=== PATIENT | male | born 1955 | race African-American/Black ===

== ENCOUNTER 2022-11-05 13:33 | Inpatient (IN) | payer OTHER, SELFPAY ==
--- NOTE | ~2022-11-05 | MR_ITS ---
MRI OF THE BRAIN WITHOUT IV CONTRAST INDICATION: Rule out frontotemporal dementia. COMPARISON: None available. TECHNIQUE: Multiplanar multisequence MR imaging of the brain was obtained without IV contrast. FINDINGS: There is no hydrocephalus, extra-axial surface collection, or herniation. There is global cerebral volume loss with a frontoparietal lobar predominance at the high convexity. There is mild chronic microangiopathy. The major flow voids at the skull base are preserved. There is no acute infarct on diffusion-weighted imaging. There is no intracranial hemorrhage on the gradient recalled echo acquisition. The midline structures are normal. The cerebellar tonsils are normally positioned. The cerebellum and brainstem are normal. The craniocervical junction is normal. Osseous marrow signal intensity is homogenous. The visualized soft tissues are unremarkable. MR/MR head/brain wo con IMPRESSION: There is global cerebral volume loss with a frontoparietal lobar predominance at the high convexity. There is mild chronic microangiopathy.
--- NOTE | ~2022-11-05 | XR_ITS ---
Examination: Skull 2 views. Clinical indications: Pre-MRI screening. TECHNIQUE: 2 views. FINDINGS: There is no radiopaque metallic foreign body seen in the orbits or the skull. Visualized paranasal sinuses are clear. There are dental fillings along the premolar teeth bilaterally. XR/XR pre mri screening IMPRESSION: No radiopaque metallic foreign body seen in the orbits.
--- NOTE | ~2022-11-05 | XR_ITS ---
EXAMINATION: XR WRIST, LEFT XR HAND, LEFT CLINICAL INFORMATION: Rule out hardware COMPARISON: None available. TECHNIQUE: PA, lateral, and oblique views of the left wrist and PA, lateral, and oblique views of the left hand FINDINGS: There is osteopenia. There is old trauma to the middle phalanx of the third finger. There are adjacent multiple small radiopaque soft tissue foreign bodies. No acute fracture or dislocation. There is mild arthritis at the first LONG-TERM joint. Carpal bones are otherwise normal. Soft tissues are otherwise normal. XR/XR hand wrist LT IMPRESSION: Old trauma to the middle phalanx of the left third finger and multiple adjacent soft tissue foreign bodies. Mild arthritis first LONG-TERM joint. Osteopenia.
[2022-11-05 14:04] VITALS: BMI 21.4
[2022-11-05 14:06] VITALS: BP 136/71; PULSE 82; RESP 16; TEMP 36.8; O2SAT 97
--- NOTE | 2022-11-05 15:12 | P.HPPS_ITS ---
[facility] Date of Service: 11/05/22 Chief Complaint: Psychosis Sources of Information: patient interviewed, chart reviewed and crisis/core team assessment reviewed [facility] Subjective Notes: Feliciano Warning and Conditional Voluntary Narrative: The patient is a 67-year-old male, , living with his and the relatives, retired, on disability, with no prior formal psychiatric history referred from the emergency room of [facility] for psychotic symptoms. According to the crisis assessment, the patient reported that he was not feeling good that he was feeling a stress out and he called 911 and EMS brought him to the emergency room. According to the collateral information of the crisis, his reported that he had been suffering from dementia for the last 20 years and he had been poorly compliant with treatment. In the last weeks the patient shown bizarre behavior elicited by her resting his neighbors, living food on the porch of his neighbors, talking to himself, and poor short- term memory. He was medically cleared at the emergency room of [facility] and transferring to this facility for psychiatric stabilization. According to the crisis assessment the patient does not have any insight into his mental and behavioral problems. On interview, the patient was very pleasant and cooperative, he stated that he did not know why they brought him here, he wants to figure it out what is going on and he signed a conditional voluntary. He denied auditory or visual hallucinations, denies anxiety or depression. He admitted being a heavy smoker more than a pack of cigarettes per day, sporadic use of cannabis and alcohol but not current use. He denies any medical problems. According to the chart, his neighbors have filed and no her assessment order and the patient does not know why. On the intake interview, the patient was very hard of hearing, his hearing aids were not working very well but he was able to understand most of the questions. He understood feliciano warning. Past Psychiatric History: No prior psychiatric history but apparently in the last 2 years he was diagnosed with dementia. Medical Evaluation Reviewed: Hospitalist Jorge Pending [facility] Narrative: Dementia Hard of hearing Family History: According to the crisis assessment the patient is father had Alzheimer's dementia Social History: The patient is lives with his and relative, he has very good social support, he is currently on disability. He has a stable housing. Substance History: He admitted using sporadic cannabis and alcohol Trauma History: Denies Diagnostics Vital Signs (24Hr): Vital Signs - 24 hr 11/05/22 14:06 Temperature 98.2 F Pulse Rate 82 Respiratory Rate 16 Blood Pressure 136/71 Pulse Oximetry 97 Oxygen Delivery Method Room Air BMI result Body Mass Index 21.4 Meds/Allergies Allergies Allergies Allergy/AdvReac Type Severity Reaction Status Date / Time No Known Allergies Allergy Verified 11/05/22 13:53 Mental Status Exam Mental Status Exam Patient Appearance: Appropriate (On hospital gowns) Patient Orientation: Person and Situation Level of Consciousness: Awake and Appropriate Patient Behavior: Guarded and Passive Mood Description: Calm Affect Description: Constricted Patient Cognition Impaired: Yes Ability to Follow Directions: Good Speech Pattern: Clear Hallucinations: Auditory Delusions: Ideas of Reference Thought Process: Distracted and Slowed Thinking Thought Content: positive for [place], positive for Poverty of Content and positive for Loose Associations Judgement: Poor Assessment & Plan Assessment & Plan (1) Dementia: Status: Acute Code(s): F03.90 - Unspecified dementia, unspecified severity, without behavioral disturbance, psychotic disturbance, mood disturbance, and anxiety (2) Psychotic disorder: Status: Acute Code(s): F29 - Unspecified psychosis not due to a substance or known physiological condition Plan The patient is an elderly male with no prior psychiatric history besides dementia who had been on compliant with medications and in the last weeks he presented with psychotic symptoms elicited by disorganized behavior, responding to internal stimuli and her icing his neighbors to the point that the neighbors put an order of wrist traction against him. The patient does not have any insight into his condition but he is able to stay in the hospital for assessment. Plan 1. Gather collateral information. We are going to try to contact his family and get more information. We are also going to try to contact his primary care physician and get previous records of previous [place] tests. 2. According to the med rec, the patient had been taking Aricept 10 mg p.o. q.h.s. that we will continue. 3. We will continue with a mean the 3 and other medications. 4. We will continue with medical workout. 5. We will start a very low dose of olanzapine 2.5 p.o. q.h.s. to target psychosis Patient educated on: diagnosis and therapeutic strategies Informed Consent: further education needed Reason for continued inpatient stay Substantial Risk for: harm to others, inability to function, rapid decompensation and med/psych decompensation Statement Statement: I have reviewed the history and physical and performed a pertinent examination on my patient. No changes have occurred unless specified. If the History and Physical was not performed prior to admission, the Hospitalist's service will be consulted for completing the admission physical. Time Spent With Patient Time: Total time managing care of this patient today _45___ minutes.
--- NOTE | 2022-11-05 15:55 | PC.ADMIT ---
Addendum entered and electronically signed by Angela Albert RN 11/05/22 18:49: Pt declined Atarax again when visited. shook head and stated, He won't take it. Accepted Flu Vacc prescribed left deltoid. Calmer at present time with split visit from family; and daughter. Original Note: Addendum entered and electronically signed by Angela Albert RN 11/05/22 18:18: Pt attempted to climb over nurses station at 1745. Observed with top of body hanging downward over side of nurses station with head facing down by staff. Pt removed self from area with staff direction. Exit seeking every time staff exited and entered unit for breaks. Atarax 25mg po offered at 1814 for anxiety. Pt reluctant to take despite med education. Took very tip of pill in mouth and stated, I should just take a very little bit since I don't know what it will do to me. Placed pill on table for this speech writer to retrieve. Original Note: This is the 1st admission for this 67 y.o. male to [facility]. Referred by Aleshia Chairez with Dx of Unspecified Neurocognitive Disorder. Arrived on unit at 1445 via stretcher from [facility] ED and placed on 5 min safety checks. Precipitating factors to admission: Presented to [facility] ED via EMS reportedly for unusual behaviors. Per [facility] assessment reported pt has been harassing neighbors by attempting to get into the home and leaving food on the front porch. Neighbors have filed a harassment order against pt and reported pt does not comprehend the reason for order. reported pt has no insight into mental health and has been non-compliant with meds. reported observing pt having full conversations with the bahena. According to pt has been experiencing memory loss x2 years and reported paranoia and delusions have increased over the last couple of months. Pt reports monthly etoh/marijuana use and denies withdrawal symptoms. Reports smoking 1.5-2 packs of cigarettes daily, NRT ordered by Dr Kelly. Denies current medical issues. Meds verified with [facility], admission ordered received from Dr Kelly. Denies SI/HI. Stated, I can hear voices of my neighbors right now. It i nerve wracking when you constantly hear them, especially when you are trying to have a conversation. Stated, Did you hear that? Punch him in the nose? [place] bilaterally, utilizes hearing aids with minimal effect. Confusion noted throughout admission assessment and all following interactions. Looking for a way off of unit to catch a bus to see his mother. Repetitive with this, approaches multiple staff members wt same request to leave. Unable to process feedback given re: being hospitalized. Initially stated he was here for analysis of his eyes and ears. Then stated he was here to visit someone, has done this and needs to get home to his mother that he has left on the porch. Stated he does not live with , but will always have a room in her home. called, updated on condition/confusion. states pt's mother in 2008 and pt does live with her. states they just celebrated anniversary. to visit tonight if time available.
--- NOTE | 2022-11-05 19:07 | P.CONHOSP_ITS ---
<Statement entered by Gabriel Martin MD - 01/04/23 19:16> pt was not seen by me History of Present Illness Data of Consult Service Date: 11/05/22 Primary Care Provider: Unknown Physician HPI Reason for consult: Admission H&P Pt is a 67-year-old male with no known significant PMH who is admitted to [facility] for unusual and aggressive behavior. Patient apparently has been having memory loss for the past 2 years though it has increased lately. reports neighbors have filed a harassment order as patient has been leaving uncooked food on their porch is and threatening to hit them. also reports patient experiencing auditory and visual hallucinations and has witnessed him having full conversations with the bahena. Medical consult for admission H&P. ?Patient alert and oriented to self only during interview and exam, displaying flight of ideas, incomprehensible thought, not answering questions appropriately. Patient is incapable of providing accurate HPI, the patient states he has no acute medical complaints at this time. Review of Systems Review of Systems: Unable to obtain due to patient's mentation [facility] Social History Household Members: Spouse Housing: House Do you presently have visiting nurse or other home services: No Patient Tobacco Use Status: Current everyday Tobacco user Tobacco use type: Cigarette Cigarette Packs Per Day: 1.5 Cigarettes Per Day: 30.0 Years Smoked: 50 Smoked in Last 30 Days: Yes e-Cigarette/Vaping Use: Never Used Patient Interested in Nicotine Replacement: Yes Patient Given Instructions on How to Stop Smoking: No (does not want) Second Hand Smoke Exposure: Yes Use of substances other than those prescribed or required for medical reasons: Yes Substance Use Type: Marijuana Substance Use Frequency: Monthly Last Used Substance Other:: 1 month ago Currently Displaying Signs/Symptoms of Drug Intoxication Withdrawal: No Any prior treatment program specific to substance use: No Have you been hit, kicked, punched, or otherwise hurt by someone within the past year? If so, by whom?: No Do you feel safe in your current relationship?: Yes Is there a partner from a previous relationship who is making you feel unsafe now?: No Are you made to feel afraid or neglected: No Advance Directives: No Advance Directives Information Provided: Yes Do you have thoughts of harming others: None Do you have a plan to hurt others: No Plan Recently lost weight without trying: No Nutrition Risks: No Nutritional Risk Poor oral hygiene: No Sexual orientation: Straight/Heterosexual Meds Allergies Allergy/AdvReac Type Severity Reaction Status Date / Time No Known Allergies Allergy Verified 11/05/22 13:53 Active Medications: Current Medications Acetaminophen (Acetaminophen 325 Mg Tablet) 650 mg PO Q6H PRN PRN Reason: Headache/Pain Mild Scale (1-3) Al Hydroxide/Mg Hydroxide (Magnesium Hydrox/Alum Hydrox 30 Ml Oral.Susp) 30 ml PO Q6H PRN PRN Reason: Heartburn/Nausea Donepezil HCl (Donepezil Hcl 10 Mg Tablet) 10 mg PO BEDTIME BARBARA Hydroxyzine HCl (Hydroxyzine Hcl 25 Mg Tablet) 25 mg PO Q6H PRN PRN Reason: Anxiety Magnesium Hydroxide (Milk Of Magnesia 30 Ml Oral.Susp) 30 ml PO DAILY PRN PRN Reason: Constipation Nicotine (Nicotine 21 Mg Patch.Td24) 21 mg TRANSDERMA DAILY BARBARA Nicotine Polacrilex (Nicotine Polacrilex 2 Mg Gum) 2 mg BUCCAL Q2H PRN PRN Reason: smoking Olanzapine (Olanzapine 2.5 Mg Tablet) 2.5 mg PO BEDTIME BARBARA Trazodone HCl (Trazodone Hcl 50 Mg Tablet) 50 mg PO BEDTIME MRX1 PRN PRN Reason: Insomnia Vitamin D (Cholecalciferol (Vitamin D3) 10 Mcg Tablet) 20 mcg PO DAILY [facility] Home Medications Medication Instructions Recorded Confirmed Last Taken Type celecoxib 200 mg capsule (Celebrex) 200 mg PO DAILY 11/05/22 11/05/22 Unknown History cholecalciferol (vitamin D3) 50 2,000 unit PO DAILY 11/05/22 11/05/22 Unknown History mcg (2,000 unit) capsule (Vitamin D3) donepezil 10 mg tablet 10 mg PO BEDTIME 11/05/22 11/05/22 Unknown History donepezil 5 mg tablet 5 mg PO BEDTIME 11/05/22 11/05/22 Unknown History Physical Exam Vital Signs and Narrative: Vital Signs: Last Vital Signs Temp 98.2 F 11/05/22 14:06 Pulse 82 11/05/22 14:06 Resp 16 11/05/22 14:06 BP 136/71 11/05/22 14:06 Pulse Ox 97 11/05/22 14:06 O2 Del Method Room Air 11/05/22 14:06 BMI result Body Mass Index 21.4 Constitutional: Alert, confused, in no acute distress. Mental Status: Oriented to person only, not to place, time, or situation. Eyes: Pupils are equal, round, and reactive to light. Ear, Nose, and Throat: Oropharynx clear, mucous membranes moist. Ears and nose without deformities. Trachea midline. Respiratory: Clear to auscultation bilaterally. No wheezing, rales, or rhonchi. Cardiovascular: S1, S2 regular. No murmurs, rubs, or gallops. Gastrointestinal: Abdomen soft, non-tender, non-distended. Normal bowel sounds. Neurologic: Cranial nerves II-XII are grossly intact bilaterally. No focal neuro logical deficits. Moves all extremities spontaneously. Skin: No rashes or lesions noted. Musculoskeletal: No cyanosis or clubbing. Extremities: No edema. Psychiatric: Confused, displaying flight of ideas, not answering appropriately. Assessment and Plan (1) Dementia: Status: Acute (2) Medical clearance for psychiatric admission: Status: Acute Plan Pt is a 67-year-old male with no known significant PMH who is admitted to [facility] for unusual and aggressive behavior. Patient apparently has been having memory loss for the past 2 years though it has increased lately. reports neighbors have file in respite order S patient has been leaving uncooked food on their porch is and threatening to hit them. also reports patient experiencing auditory and visual hallucinations and has witnessed him having full conversations with the bahena. Medical consult for admission H&P. Mood disorder Plan as per Psychiatry Dementia Continue donepezil Thank you for allowing us to participate in the care of this patient. Signing off at this time. Please let us know if there are any acute complaints or questions. Time Spent With Patient Time: Total time managing care of this patient today ____ minutes.
[2022-11-05] MEDS: OLANZapine 2.5 MG TABLET PO (20:56)
[2022-11-05] MEDS: Donepezil HCl 10 MG TABLET PO (20:56)
[2022-11-05] MEDS: traZODone HCL 50 MG TABLET PO ×2 (20:56→23:31)
[2022-11-05] MEDS: Nicotine Polacrilex 2 MG GUM BUCCAL (21:00)
[2022-11-05] MEDS: hydrOXYzine HCL 25 MG TABLET PO (23:31)
[2022-11-05] MEDS: Acetaminophen 325 MG TABLET 650 MG PO (23:31)
[2022-11-06 07:00] VITALS: BMI 21.9
[2022-11-06 08:17] VITALS: BP 97/67; PULSE 77; RESP 16; TEMP 36.4; O2SAT 98
[2022-11-06] MEDS: Celecoxib 200 MG CAPSULE PO (08:19)
[2022-11-06] MEDS: Nicotine 21 MG PATCH.TD24 TRANSDERMA (08:19)
[2022-11-06] MEDS: Cholecalciferol (Vitamin D3) 25 MCG TABLET PO (08:22)
[2022-11-06 08:30] LABS: Alanine Aminotransferase 41 U/L (0-40); Albumin Level 4.1 g/dL (3.5-5.0); Alkaline Phosphatase 85 U/L (39-117); Anion Gap 12 (12-20); Aspartate Amino Transferase 32 U/L (5-37); Bilirubin Total 1.2 mg/dL (0.0-1.0); Blood Urea Nitrogen 18 mg/dL (9-16); Calcium 9.3 mg/dL (8.4-10.2); Carbon Dioxide 25 mmol/L (22-29); Chloride 108 mmol/L (96-108); Cholesterol 168 mg/dL (<200); Creatinine Clr Calc Pharmacy 75.3; Estimated Glomerular Filt Rate > 60; Glucose Fasting 104 mg/dL (60-99); HDL Cholesterol 48 mg/dL (>40); LDL Cholesterol Calculated 112 mg/dL (<100); Potassium 3.8 mmol/L (3.3-5.1); Sodium 141 mmol/L (135-145); Total Protein 7.2 g/dL (6.5-8.0); Triglycerides 42 mg/dL (<150)
--- NOTE | 2022-11-06 14:57 | P.PNPSI_ITS ---
Subjective Subjective Date of Service: 11/06/22 Reason For Visit: Psychosis Subjective Notes: Conditional Voluntary Interim History: The nursing staff reported that last night the patient wanted to leave he was agitated and he needed p.r.n. and that helped him to sleep. He has been exit seeking and confused at times. Today the occupational therapist did cognitive Assessment and he scored 4.4 on the Lj test. He was unable to do the Payne test. On interview the patient wants to leave he stated that he is feeling fine and he does not understand why he is here. We are going to contact his and get more collateral information. We are increasing Zyprexa to 5 mg p.o. q.h.s. Mental Status Exam Mental Status Exam Patient Appearance: Well Grooomed Patient Orientation: Person and Situation Level of Consciousness: Awake and Restless Patient Behavior: Appropriate and Passive Mood Description: Calm Affect Description: Constricted Patient Cognition Impaired: Yes Ability to Follow Directions: Good Speech Pattern: Clear Hallucinations: None Delusions: Paranoid Ideation and Ideas of Reference Thought Process: Distracted and Slowed Thinking Thought Content: positive for [place], positive for Poverty of Content and positive for Loose Associations Judgement: Poor Diagnostics Vital Signs (24Hr): Vital Signs - 24 hr 11/06/22 08:17 Temperature 97.6 F Pulse Rate 77 Respiratory Rate 16 Blood Pressure 97/67 Pulse Oximetry 98 Oxygen Delivery Method Room Air BMI result Body Mass Index 21.4 Labs 11/06/22 07:53 Labs: Laboratory Results - last 48 hr 11/06/22 07:53 Sodium 141 Potassium 3.8 Chloride 108 Carbon Dioxide 25 Anion Gap 12 BUN 18 H Creatinine 0.87 Estim Creat Clear Calc 75.3 Estimated GFR > 60 Fasting Glucose 104 H Calcium 9.3 Total Bilirubin 1.2 H AST 32 ALT 41 H Alkaline Phosphatase 85 Total Protein 7.2 Albumin 4.1 Triglycerides 42 Cholesterol 168 LDL Cholesterol, Calc 112 H HDL Cholesterol 48 Medications Medications Current Medications Acetaminophen (Acetaminophen 325 Mg Tablet) 650 mg PO Q6H PRN PRN Reason: Headache/Pain Mild Scale (1-3) Last Admin: 11/05/22 23:31 Dose: 650 mg Al Hydroxide/Mg Hydroxide (Magnesium Hydrox/Alum Hydrox 30 Ml Oral.Susp) 30 ml PO Q6H PRN PRN Reason: Heartburn/Nausea Celecoxib (Celecoxib 200 Mg Capsule) 200 mg PO DAILY [facility] Last Admin: 11/06/22 08:19 Dose: 200 mg Donepezil HCl (Donepezil Hcl 10 Mg Tablet) 10 mg PO BEDTIME BARBARA Last Admin: 11/05/22 20:56 Dose: 10 mg Hydroxyzine HCl (Hydroxyzine Hcl 25 Mg Tablet) 25 mg PO Q6H PRN PRN Reason: Anxiety Last Admin: 11/05/22 23:31 Dose: 25 mg Magnesium Hydroxide (Milk Of Magnesia 30 Ml Oral.Susp) 30 ml PO DAILY PRN PRN Reason: Constipation Nicotine (Nicotine 21 Mg Patch.Td24) 21 mg TRANSDERMA DAILY BARBARA Last Admin: 11/06/22 08:19 Dose: 21 mg Nicotine Polacrilex (Nicotine Polacrilex 2 Mg Gum) 2 mg BUCCAL Q2H PRN PRN Reason: smoking Last Admin: 11/05/22 21:00 Dose: 2 mg Olanzapine (Olanzapine 5 Mg Tablet) 5 mg PO BEDTIME BARBARA Trazodone HCl (Trazodone Hcl 50 Mg Tablet) 50 mg PO BEDTIME MRX1 PRN PRN Reason: Insomnia Last Admin: 11/05/22 23:31 Dose: 50 mg Vitamin D (Cholecalciferol (Vitamin D3) 25 Mcg Tablet) 25 mcg PO DAILY BARBARA Last Admin: 11/06/22 08:22 Dose: 25 mcg Allergies Allergies Allergy/AdvReac Type Severity Reaction Status Date / Time No Known Allergies Allergy Verified 11/05/22 13:53 Assessment & Plan Assessment & Plan (1) Dementia: Status: Acute Code(s): F03.90 - Unspecified dementia, unspecified severity, without behavioral disturbance, psychotic disturbance, mood disturbance, and anxiety (2) Medical clearance for psychiatric admission: Status: Acute Code(s): Z00.8 - Encounter for other general examination Plan Pt is a 67-year-old male with no known significant PMH who is admitted to [facility] for unusual and aggressive behavior. Patient apparently has been having memory loss for the past 2 years though it has increased lately. reports neighbors have file in respite order S patient has been leaving uncooked food on their porch is and threatening to hit them. also reports patient experiencing auditory and visual hallucinations and has witnessed him having full conversations with the bahena. Medical consult for admission H&P. Mood disorder Plan as per Psychiatry Dementia Continue donepezil Plan 1. Gather collateral information. 2. Increase Zyprexa to 5 mg p.o. q.h.s. to target psychosis. 3. We are continue with Aricept 10 mg p.o. q.h.s., we are considering adding Namenda but we need more collateral information. Reason for continued inpatient stay Substantial Risk for: inability to function, rapid decompensation and med/psych decompensation Time Spent With Patient Time: Total time managing care of this patient today __20__ minutes.
[2022-11-06 18:00] VITALS: BP 127/61; PULSE 68; RESP 17; TEMP 36.4; O2SAT 97
[2022-11-06] MEDS: OLANZapine 5 MG TABLET PO (20:31)
[2022-11-06] MEDS: Donepezil HCl 10 MG TABLET PO (20:31)
[2022-11-06] MEDS: traZODone HCL 50 MG TABLET PO (20:31)
[2022-11-06] MEDS: hydrOXYzine HCL 25 MG TABLET PO (20:31)
[2022-11-07 07:30] VITALS: BP 117/64; PULSE 71; RESP 18; TEMP 36.3; O2SAT 98
[2022-11-07] MEDS: Cholecalciferol (Vitamin D3) 25 MCG TABLET PO (08:41)
[2022-11-07] MEDS: Celecoxib 200 MG CAPSULE PO (08:41)
[2022-11-07] MEDS: Nicotine 21 MG PATCH.TD24 TRANSDERMA (08:42)
--- NOTE | 2022-11-07 13:14 | HO.PSYCHPN ---
Subjective Subjective Date of Service: 11/07/22 Reason For Visit: Psychosis Subjective Notes: Conditional Voluntary Interim History: The nursing staff reported the patient is alert oriented to self. He is exit seeking behavior has improved slightly. He slept better last night confused but redirectable. He wants to go home and he does not know why he is here. The social studies teacher talk with his and apparently he had been responding to internal stimuli. He was supposed to go to court yesterday but we wrote a letter stating that he was here. According to his , he has lost more than 90 lb in the last 2 years because he was not eating. Will have a family meeting today at 01:30 to gather more collateral information The occupational therapist reported that the Lj test score 4.2. On interview, the patient is confused but redirectable we are going to increase Namenda up to 5 mg p.o. b.i.d. on top of the Aricept because his cognition is impaired. Since there was psychosis with poor memory, we are ordering an MRI head to R/O fronto-temporal dementia or Lewy Body Mental Status Exam Mental Status Exam Patient Appearance: Well Grooomed and Appropriate Patient Orientation: Person and Situation Level of Consciousness: Awake and Appropriate Patient Behavior: Guarded and Passive Mood Description: Withdrawn Affect Description: Constricted Patient Cognition Impaired: Yes Ability to Follow Directions: Good Speech Pattern: Clear Hallucinations: None Delusions: Paranoid Ideation and Ideas of Reference Thought Process: Illogical, Distracted and Slowed Thinking Thought Content: positive for [place] and positive for Poverty of Content Judgement: Poor Diagnostics Vital Signs (24Hr): Vital Signs - 24 hr 11/06/22 18:00 Temperature 97.6 F Pulse Rate 68 Respiratory Rate 17 Blood Pressure 127/61 Pulse Oximetry 97 Oxygen Delivery Method Room Air BMI result Body Mass Index 21.9 Labs 11/06/22 07:53 Labs: Laboratory Results - last 48 hr 11/06/22 07:53 Sodium 141 Potassium 3.8 Chloride 108 Carbon Dioxide 25 Anion Gap 12 BUN 18 H Creatinine 0.87 Estim Creat Clear Calc 75.3 Estimated GFR > 60 Fasting Glucose 104 H Calcium 9.3 Total Bilirubin 1.2 H AST 32 ALT 41 H Alkaline Phosphatase 85 Total Protein 7.2 Albumin 4.1 Triglycerides 42 Cholesterol 168 LDL Cholesterol, Calc 112 H HDL Cholesterol 48 Medications Medications Current Medications Acetaminophen (Acetaminophen 325 Mg Tablet) 650 mg PO Q6H PRN PRN Reason: Headache/Pain Mild Scale (1-3) Last Admin: 11/05/22 23:31 Dose: 650 mg Al Hydroxide/Mg Hydroxide (Magnesium Hydrox/Alum Hydrox 30 Ml Oral.Susp) 30 ml PO Q6H PRN PRN Reason: Heartburn/Nausea Celecoxib (Celecoxib 200 Mg Capsule) 200 mg PO DAILY [facility] Last Admin: 11/07/22 08:41 Dose: 200 mg Donepezil HCl (Donepezil Hcl 10 Mg Tablet) 10 mg PO BEDTIME [facility] Last Admin: 11/06/22 20:31 Dose: 10 mg Hydroxyzine HCl (Hydroxyzine Hcl 25 Mg Tablet) 25 mg PO Q6H PRN PRN Reason: Anxiety Last Admin: 11/06/22 20:31 Dose: 25 mg Magnesium Hydroxide (Milk Of Magnesia 30 Ml Oral.Susp) 30 ml PO DAILY PRN PRN Reason: Constipation Memantine (Memantine Hcl 5 Mg Tablet) 5 mg PO BID [facility] Nicotine (Nicotine 21 Mg Patch.Td24) 21 mg TRANSDERMA DAILY [facility] Last Admin: 11/07/22 08:42 Dose: 21 mg Nicotine Polacrilex (Nicotine Polacrilex 2 Mg Gum) 2 mg BUCCAL Q2H PRN PRN Reason: smoking Last Admin: 11/05/22 21:00 Dose: 2 mg Olanzapine (Olanzapine 5 Mg Tablet) 5 mg PO BEDTIME [facility] Last Admin: 11/06/22 20:31 Dose: 5 mg Trazodone HCl (Trazodone Hcl 50 Mg Tablet) 50 mg PO BEDTIME MRX1 PRN PRN Reason: Insomnia Last Admin: 11/06/22 20:31 Dose: 50 mg Vitamin D (Cholecalciferol (Vitamin D3) 25 Mcg Tablet) 25 mcg PO DAILY [facility] Last Admin: 11/07/22 08:41 Dose: 25 mcg Allergies Allergies Allergy/AdvReac Type Severity Reaction Status Date / Time No Known Allergies Allergy Verified 11/05/22 13:53 Assessment & Plan Assessment & Plan (1) Dementia: Status: Acute Code(s): F03.90 - Unspecified dementia, unspecified severity, without behavioral disturbance, psychotic disturbance, mood disturbance, and anxiety (2) Medical clearance for psychiatric admission: Status: Acute Code(s): Z00.8 - Encounter for other general examination Plan Pt is a 67-year-old male with no known significant PMH who is admitted to [facility] for unusual and aggressive behavior. Patient apparently has been having memory loss for the past 2 years though it has increased lately. reports neighbors have file in respite order S patient has been leaving uncooked food on their porch is and threatening to hit them. also reports patient experiencing auditory and visual hallucinations and has witnessed him having full conversations with the bahena. Medical consult for admission H&P. Mood disorder Plan as per Psychiatry Dementia Continue donepezil Plan 1. Gather collateral information. 2. Increase Zyprexa to 5 mg p.o. q.h.s. to target psychosis. 3. We are continue with Aricept 10 mg p.o. q.h.s., we are considering adding Namenda but we need more collateral information. 4. Family meeting for 11/07 with his . 5. MRI head R/o Lewy body or frontotemporaral. Reason for continued inpatient stay Substantial Risk for: inability to function, rapid decompensation and med/psych decompensation Time Spent With Patient Time: Total time managing care of this patient today __20__ minutes.
[2022-11-07] MEDS: hydrOXYzine HCL 25 MG TABLET PO (17:33)
[2022-11-07 18:00] VITALS: BP 128/83; PULSE 98; RESP 16; TEMP 36.1; O2SAT 98
[2022-11-07] MEDS: OLANZapine ODT 10 MG TAB.RAPDIS 5 MG TRANSLINGU ×2 (19:54→23:16)
[2022-11-07] MEDS: Donepezil HCl 10 MG TABLET PO (19:56)
[2022-11-07] MEDS: Memantine HCl 5 MG TABLET PO (19:56)
[2022-11-07] MEDS: OLANZapine 5 MG TABLET PO ×2 (19:56→21:42)
[2022-11-07] MEDS: traZODone HCL 50 MG TABLET PO ×2 (20:04→21:41)
[2022-11-07] MEDS: Nicotine Polacrilex 2 MG GUM BUCCAL (23:13)
--- NOTE | 2022-11-08 03:10 | PC.NURSE ---
2000 Patient has been extremely confused to time and place. he states he needs to find his car and get out here. the patient is not interested in redirection. he states im not at the hospital. he is an elopement risk. he is wandering the milieu pulling at doors and trying to exit the area. he has clothes in two paper bags he is carrying around with him. he is hyperkinetic and has actually tried to climb up on the nurses station glass. his entire focus is on escaping the unit. dr tyesha madrid has been contacted and the above documentation has been discussed. plan 1 stat dose zydis 5 mg in addition to scheduled zyprexa these medications have had very little affect on the patients behavior. dr balbir madrid contacted a second time and notified zyprexa and zydis given 60 minutes ago with little effect. plan repeat zydis 5 mg po now-2300 pt states that he is tired. he is accompanied to his room and falls asleep.
[2022-11-08 08:00] VITALS: BP 104/52; PULSE 77; RESP 18; TEMP 36.8; O2SAT 99
[2022-11-08] MEDS: Nicotine 21 MG PATCH.TD24 TRANSDERMA (08:55)
[2022-11-08] MEDS: Celecoxib 200 MG CAPSULE PO (08:56)
[2022-11-08] MEDS: Cholecalciferol (Vitamin D3) 25 MCG TABLET PO (08:56)
[2022-11-08] MEDS: Memantine HCl 5 MG TABLET PO ×2 (08:56→20:16)
--- NOTE | 2022-11-08 11:57 | P.PNPSI_ITS ---
Subjective Subjective Date of Service: 11/08/22 Reason For Visit: Psychosis Interim History: ambulatory. responds with non-sequiturs. focused on his need to make money to pay off debts. no questions or complaints for MD. per staff, elopement risk. wandering. slept about 6 hours after total of 10 mg zyprexa and 2 mg ativan last night. resting, comfortable today. Mental Status Exam Mental Status Exam Patient Appearance: Well Grooomed and Appropriate Patient Orientation: Person and Situation Level of Consciousness: Awake and Appropriate Patient Behavior: Guarded and Passive Mood Description: Withdrawn Affect Description: Constricted Patient Cognition Impaired: Yes Ability to Follow Directions: Good Speech Pattern: Clear Hallucinations: None Delusions: Paranoid Ideation and Ideas of Reference Thought Process: Illogical, Distracted and Slowed Thinking Thought Content: positive for [place] and positive for Poverty of Content Judgement: Poor Diagnostics Vital Signs (24Hr): Vital Signs - 24 hr 11/07/22 18:00 11/08/22 08:00 Temperature 97 F 98.2 F Pulse Rate 98 77 Respiratory Rate 16 18 Blood Pressure 128/83 104/52 L Pulse Oximetry 98 99 Oxygen Delivery Method Room Air Room Air BMI result Body Mass Index 21.9 Labs 11/06/22 07:53 Medications Medications Current Medications Acetaminophen (Acetaminophen 325 Mg Tablet) 650 mg PO Q6H PRN PRN Reason: Headache/Pain Mild Scale (1-3) Last Admin: 11/05/22 23:31 Dose: 650 mg Al Hydroxide/Mg Hydroxide (Magnesium Hydrox/Alum Hydrox 30 Ml Oral.Susp) 30 ml PO Q6H PRN PRN Reason: Heartburn/Nausea Celecoxib (Celecoxib 200 Mg Capsule) 200 mg PO DAILY [facility] Last Admin: 11/08/22 08:56 Dose: 200 mg Donepezil HCl (Donepezil Hcl 10 Mg Tablet) 10 mg PO BEDTIME [facility] Last Admin: 11/07/22 19:56 Dose: 10 mg Hydroxyzine HCl (Hydroxyzine Hcl 25 Mg Tablet) 25 mg PO Q6H PRN PRN Reason: Anxiety Last Admin: 11/07/22 17:33 Dose: 25 mg Magnesium Hydroxide (Milk Of Magnesia 30 Ml Oral.Susp) 30 ml PO DAILY PRN PRN Reason: Constipation Memantine (Memantine Hcl 5 Mg Tablet) 5 mg PO BID [facility] Last Admin: 11/08/22 08:56 Dose: 5 mg Nicotine (Nicotine 21 Mg Patch.Td24) 21 mg TRANSDERMA DAILY [facility] Last Admin: 11/08/22 08:55 Dose: 21 mg Nicotine Polacrilex (Nicotine Polacrilex 2 Mg Gum) 2 mg BUCCAL Q2H PRN PRN Reason: smoking Last Admin: 11/07/22 23:13 Dose: 2 mg Olanzapine (Olanzapine 5 Mg Tablet) 5 mg PO BEDTIME [facility] Last Admin: 11/07/22 21:42 Dose: 5 mg Olanzapine (Olanzapine Odt 10 Mg Tab.Rapdis) 5 mg TRANSLINGU BEDTIME [facility] Last Admin: 11/07/22 23:16 Dose: 5 mg Trazodone HCl (Trazodone Hcl 50 Mg Tablet) 50 mg PO BEDTIME MRX1 PRN PRN Reason: Insomnia Last Admin: 11/07/22 21:41 Dose: 50 mg Vitamin D (Cholecalciferol (Vitamin D3) 25 Mcg Tablet) 25 mcg PO DAILY [facility] Last Admin: 11/08/22 08:56 Dose: 25 mcg Allergies Allergies Allergy/AdvReac Type Severity Reaction Status Date / Time No Known Allergies Allergy Verified 11/05/22 13:53 Assessment & Plan Assessment & Plan (1) Dementia: Status: Acute Code(s): F03.90 - Unspecified dementia, unspecified severity, without behavioral disturbance, psychotic disturbance, mood disturbance, and anxiety (2) Medical clearance for psychiatric admission: Status: Acute Code(s): Z00.8 - Encounter for other general examination Plan Pt is a 67-year-old male with no known significant PMH who is admitted to [facility] for unusual and aggressive behavior. Patient apparently has been having memory loss for the past 2 years though it has increased lately. reports neighbors have file in respite order S patient has been leaving uncooked food on their porch is and threatening to hit them. also reports patient experiencing auditory and visual hallucinations and has witnessed him having full conversations with the bahena. Medical consult for admission H&P. Mood disorder Plan as per Psychiatry Dementia Continue donepezil Plan 1. Gather collateral information. 2. Increase Zyprexa to 5 mg p.o. q.h.s. to target psychosis. 3. We are continue with Aricept 10 mg p.o. q.h.s., we are considering adding Namenda but we need more collateral information. 4. Family meeting for 11/07 with his . 5. MRI head R/o Lewy body or frontotemporaral. 11/08: continue current mgmt. required zyprexa 10 and ativan 2 last night to settle. trying exits, wandering, demented. Reason for continued inpatient stay Substantial Risk for: harm to self and inability to function Time Spent With Patient Time: Total time managing care of this patient today ____ minutes.
[2022-11-08 18:00] VITALS: BP 120/62; PULSE 80; RESP 16; TEMP 36.5; O2SAT 98
[2022-11-08] MEDS: Donepezil HCl 10 MG TABLET PO (20:16)
[2022-11-08] MEDS: traZODone HCL 50 MG TABLET PO (20:16)
[2022-11-08] MEDS: OLANZapine 5 MG TABLET PO (20:16)
[2022-11-09 07:52] VITALS: BP 108/63; PULSE 71; RESP 17; TEMP 36.6; O2SAT 96
[2022-11-09] MEDS: Memantine HCl 5 MG TABLET PO ×2 (07:56→20:59)
[2022-11-09] MEDS: Nicotine 21 MG PATCH.TD24 TRANSDERMA (07:56)
[2022-11-09] MEDS: Celecoxib 200 MG CAPSULE PO (07:56)
[2022-11-09] MEDS: Cholecalciferol (Vitamin D3) 25 MCG TABLET PO (07:56)
--- NOTE | 2022-11-09 11:19 | P.PNPSI_ITS ---
Subjective Subjective Date of Service: 11/09/22 Reason For Visit: Psychosis Interim History: calm, cooperative. non-sequiturs, unclear if due to disorganized thoughts/dementia or hearing impairment. believed he was to be discharged today, informed otherwise. no other questions or complaints. per staff, taking medications, no behavioral issues in the past 24H. Mental Status Exam Mental Status Exam Patient Appearance: Well Grooomed and Appropriate Patient Orientation: Person and Situation Level of Consciousness: Awake and Appropriate Patient Behavior: Guarded and Passive Mood Description: Withdrawn Affect Description: Constricted Patient Cognition Impaired: Yes Ability to Follow Directions: Good Speech Pattern: Clear Hallucinations: None Delusions: Paranoid Ideation and Ideas of Reference Thought Process: Illogical, Distracted and Slowed Thinking Thought Content: positive for [place] and positive for Poverty of Content Judgement: Poor Diagnostics Vital Signs (24Hr): Vital Signs - 24 hr 11/08/22 18:00 11/09/22 07:52 Temperature 97.7 F 97.9 F Pulse Rate 80 71 Respiratory Rate 16 17 Blood Pressure 120/62 108/63 Pulse Oximetry 98 96 Oxygen Delivery Method Room Air Room Air BMI result Body Mass Index 21.9 Labs 11/06/22 07:53 Imaging Radiology Impressions: ITS Impressions Hand/Wrist X-Ray 11/08/22 16:25 IMPRESSION: Old trauma to the middle phalanx of the left third finger and multiple adjacent soft tissue foreign bodies. Mild arthritis first [facility] joint. Osteopenia. Medications Medications Current Medications Acetaminophen (Acetaminophen 325 Mg Tablet) 650 mg PO Q6H PRN PRN Reason: Headache/Pain Mild Scale (1-3) Last Admin: 11/05/22 23:31 Dose: 650 mg Al Hydroxide/Mg Hydroxide (Magnesium Hydrox/Alum Hydrox 30 Ml Oral.Susp) 30 ml PO Q6H PRN PRN Reason: Heartburn/Nausea Celecoxib (Celecoxib 200 Mg Capsule) 200 mg PO DAILY [facility] Last Admin: 11/09/22 07:56 Dose: 200 mg Donepezil HCl (Donepezil Hcl 10 Mg Tablet) 10 mg PO BEDTIME [facility] Last Admin: 11/08/22 20:16 Dose: 10 mg Hydroxyzine HCl (Hydroxyzine Hcl 25 Mg Tablet) 25 mg PO Q6H PRN PRN Reason: Anxiety Last Admin: 11/07/22 17:33 Dose: 25 mg Magnesium Hydroxide (Milk Of Magnesia 30 Ml Oral.Susp) 30 ml PO DAILY PRN PRN Reason: Constipation Memantine (Memantine Hcl 5 Mg Tablet) 5 mg PO BID [facility] Last Admin: 11/09/22 07:56 Dose: 5 mg Nicotine (Nicotine 21 Mg Patch.Td24) 21 mg TRANSDERMA DAILY [facility] Last Admin: 11/09/22 07:56 Dose: 21 mg Nicotine Polacrilex (Nicotine Polacrilex 2 Mg Gum) 2 mg BUCCAL Q2H PRN PRN Reason: smoking Last Admin: 11/07/22 23:13 Dose: 2 mg Olanzapine (Olanzapine 5 Mg Tablet) 5 mg PO BEDTIME [facility] Last Admin: 11/08/22 20:16 Dose: 5 mg Olanzapine (Olanzapine Odt 10 Mg Tab.Rapdis) 5 mg TRANSLINGU BEDTIME [facility] Last Admin: 11/08/22 21:05 Dose: Not Given Trazodone HCl (Trazodone Hcl 50 Mg Tablet) 50 mg PO BEDTIME MRX1 PRN PRN Reason: Insomnia Last Admin: 11/08/22 20:16 Dose: 50 mg Vitamin D (Cholecalciferol (Vitamin D3) 25 Mcg Tablet) 25 mcg PO DAILY [facility] Last Admin: 11/09/22 07:56 Dose: 25 mcg Allergies Allergies Allergy/AdvReac Type Severity Reaction Status Date / Time No Known Allergies Allergy Verified 11/05/22 13:53 Assessment & Plan Assessment & Plan (1) Dementia: Status: Acute Code(s): F03.90 - Unspecified dementia, unspecified severity, without behavioral disturbance, psychotic disturbance, mood disturbance, and anxiety (2) Medical clearance for psychiatric admission: Status: Acute Code(s): Z00.8 - Encounter for other general examination Plan Pt is a 67-year-old male with no known significant PMH who is admitted to [facility] for unusual and aggressive behavior. Patient apparently has been having memory loss for the past 2 years though it has increased lately. reports neighbors have file in respite order S patient has been leaving uncooked food on their porch is and threatening to hit them. also reports patient experiencing auditory and visual hallucinations and has witnessed him having full conversations with the bahena. Medical consult for admission H&P. Mood disorder Plan as per Psychiatry Dementia Continue donepezil Plan 1. Gather collateral information. 2. Increase Zyprexa to 5 mg p.o. q.h.s. to target psychosis. 3. We are continue with Aricept 10 mg p.o. q.h.s., we are considering adding Namenda but we need more collateral information. 4. Family meeting for 11/07 with his . 5. MRI head R/o Lewy body or frontotemporaral. 11/08: continue current mgmt. required zyprexa 10 and ativan 2 last night to settle. trying exits, wandering, demented. 11/09: focused on discharge. calm and pleasant. taking meds. continue current mgmt. Reason for continued inpatient stay Substantial Risk for: inability to function and rapid decompensation Time Spent With Patient Time: Total time managing care of this patient today ____ minutes.
[2022-11-09 18:00] VITALS: BP 127/64; PULSE 83; RESP 18; TEMP 36.6; O2SAT 100
[2022-11-09] MEDS: Donepezil HCl 10 MG TABLET PO (20:59)
[2022-11-09] MEDS: OLANZapine ODT 10 MG TAB.RAPDIS 5 MG TRANSLINGU (21:03)
[2022-11-09] MEDS: traZODone HCL 50 MG TABLET PO (22:34)
[2022-11-09] MEDS: hydrOXYzine HCL 25 MG TABLET PO (22:34)
[2022-11-10] MEDS: LORazepam 1 MG TABLET 2 MG PO (00:19)
[2022-11-10] MEDS: OLANZapine 5 MG TABLET PO (00:19)
[2022-11-10] MEDS: Acetaminophen 325 MG TABLET 650 MG PO ×2 (00:41→21:03)
[2022-11-10] MEDS: OLANZapine 10 MG TABLET PO (02:34)
[2022-11-10 11:02] VITALS: BP 118/61; PULSE 61; RESP 18; TEMP 36.2; O2SAT 97
[2022-11-10] MEDS: Nicotine 21 MG PATCH.TD24 TRANSDERMA (15:40)
[2022-11-10] MEDS: Celecoxib 200 MG CAPSULE PO (15:40)
[2022-11-10] MEDS: Cholecalciferol (Vitamin D3) 25 MCG TABLET PO (15:40)
[2022-11-10] MEDS: Memantine HCl 10 MG TABLET PO ×2 (15:43→21:03)
--- NOTE | 2022-11-10 15:45 | PC.NURSE ---
Madi woke up around 1530 and per MD Kelly ok to give 9am meds at this time.
--- NOTE | 2022-11-10 16:41 | P.PNPSI_ITS ---
Subjective Subjective Date of Service: 11/10/22 Reason For Visit: Psychosis Subjective Notes: Conditional Voluntary Interim History: The nursing staff reported that last night he was exit seeking and needed to be medicated twice. He also receive Ativan at 04:30. Last weekend we had a family meeting the family wants him back home but fairly medicated. On interview the patient was sedated in the morning, we are increasing his Namenda to 10 mg p.o. b.i.d. and we are changing the Zyprexa to 10 mg at 17:00 Mental Status Exam Mental Status Exam Patient Appearance: Appropriate Patient Orientation: Person Level of Consciousness: Awake Patient Behavior: Guarded and Passive Mood Description: Calm Affect Description: Constricted Patient Cognition Impaired: Yes Ability to Follow Directions: Good Speech Pattern: Clear Hallucinations: None Delusions: Paranoid Ideation Thought Process: Distracted and Slowed Thinking Thought Content: positive for [place] and positive for Poverty of Content Judgement: Fair Diagnostics Vital Signs (24Hr): Vital Signs - 24 hr 11/09/22 18:00 11/10/22 11:02 Temperature 97.8 F 97.2 F Pulse Rate 83 61 Respiratory Rate 18 18 Blood Pressure 127/64 118/61 Pulse Oximetry 100 97 Oxygen Delivery Method Room Air Room Air BMI result Body Mass Index 21.9 Labs 11/06/22 07:53 Imaging Radiology Impressions: ITS Impressions Hand/Wrist X-Ray 11/08/22 16:25 IMPRESSION: Old trauma to the middle phalanx of the left third finger and multiple adjacent soft tissue foreign bodies. Mild arthritis first [facility] joint. Osteopenia. Medications Medications Current Medications Acetaminophen (Acetaminophen 325 Mg Tablet) 650 mg PO Q6H PRN PRN Reason: Headache/Pain Mild Scale (1-3) Last Admin: 11/10/22 00:41 Dose: 650 mg Al Hydroxide/Mg Hydroxide (Magnesium Hydrox/Alum Hydrox 30 Ml Oral.Susp) 30 ml PO Q6H PRN PRN Reason: Heartburn/Nausea Celecoxib (Celecoxib 200 Mg Capsule) 200 mg PO DAILY [facility] Last Admin: 11/10/22 15:40 Dose: 200 mg Donepezil HCl (Donepezil Hcl 10 Mg Tablet) 10 mg PO BEDTIME [facility] Last Admin: 11/09/22 20:59 Dose: 10 mg Hydroxyzine HCl (Hydroxyzine Hcl 25 Mg Tablet) 25 mg PO Q6H PRN PRN Reason: Anxiety Last Admin: 11/09/22 22:34 Dose: 25 mg Magnesium Hydroxide (Milk Of Magnesia 30 Ml Oral.Susp) 30 ml PO DAILY PRN PRN Reason: Constipation Memantine (Memantine Hcl 10 Mg Tablet) 10 mg PO BID [facility] Last Admin: 11/10/22 15:43 Dose: 10 mg Nicotine (Nicotine 21 Mg Patch.Td24) 21 mg TRANSDERMA DAILY [facility] Last Admin: 11/10/22 15:40 Dose: 21 mg Nicotine Polacrilex (Nicotine Polacrilex 2 Mg Gum) 2 mg BUCCAL Q2H PRN PRN Reason: smoking Last Admin: 11/07/22 23:13 Dose: 2 mg Olanzapine (Olanzapine Odt 10 Mg Tab.Rapdis) 10 mg TRANSLINGU DAILY@1700 [facility] Trazodone HCl (Trazodone Hcl 50 Mg Tablet) 50 mg PO BEDTIME MRX1 PRN PRN Reason: Insomnia Last Admin: 11/09/22 22:34 Dose: 50 mg Vitamin D (Cholecalciferol (Vitamin D3) 25 Mcg Tablet) 25 mcg PO DAILY [facility] Last Admin: 11/10/22 15:40 Dose: 25 mcg Allergies Allergies Allergy/AdvReac Type Severity Reaction Status Date / Time No Known Allergies Allergy Verified 11/05/22 13:53 Assessment & Plan Assessment & Plan (1) Dementia: Status: Acute Code(s): F03.90 - Unspecified dementia, unspecified severity, without behavioral disturbance, psychotic disturbance, mood disturbance, and anxiety (2) Medical clearance for psychiatric admission: Status: Acute Code(s): Z00.8 - Encounter for other general examination Plan Pt is a 67-year-old male with no known significant PMH who is admitted to [facility] for unusual and aggressive behavior. Patient apparently has been having memory loss for the past 2 years though it has increased lately. reports neighbors have file in respite order S patient has been leaving uncooked food on their porch is and threatening to hit them. also reports patient experiencing auditory and visual hallucinations and has witnessed him having full conversations with the bahena. Medical consult for admission H&P. Mood disorder Plan as per Psychiatry Dementia Continue donepezil Plan 1. Gather collateral information. 2. Increase Zyprexa to 5 mg p.o. q.h.s. to target psychosis. On October 2nd we change Zyprexa 10 mg p.o. at 17:00 3. We are continue with Aricept 10 mg p.o. q.h.s., we are considering adding Namenda but we need more collateral information. 4. Family meeting for 11/07 with his . 5. MRI head R/o Lewy body or frontotemporaral. Reason for continued inpatient stay Substantial Risk for: inability to function, rapid decompensation and med/psych decompensation Time Spent With Patient Time: Total time managing care of this patient today __20__ minutes.
[2022-11-10] MEDS: OLANZapine ODT 10 MG TAB.RAPDIS TRANSLINGU (16:52)
[2022-11-10 18:00] VITALS: BP 99/51; PULSE 69; RESP 16; TEMP 36.6; O2SAT 96
[2022-11-10] MEDS: hydrOXYzine HCL 25 MG TABLET PO (21:03)
[2022-11-10] MEDS: Donepezil HCl 10 MG TABLET PO (21:03)
[2022-11-10] MEDS: traZODone HCL 50 MG TABLET PO (21:03)
[2022-11-11 08:04] VITALS: BP 129/62; PULSE 64; RESP 17; TEMP 36.6; O2SAT 97
[2022-11-11] MEDS: Celecoxib 200 MG CAPSULE PO (08:07)
[2022-11-11] MEDS: Cholecalciferol (Vitamin D3) 25 MCG TABLET PO (08:07)
[2022-11-11] MEDS: Memantine HCl 10 MG TABLET PO ×2 (08:07→20:24)
[2022-11-11] MEDS: Nicotine 21 MG PATCH.TD24 TRANSDERMA (08:10)
--- NOTE | 2022-11-11 12:57 | HO.PSYCHPN ---
Subjective Subjective Date of Service: 11/11/22 Reason For Visit: Psychosis Subjective Notes: Conditional Voluntary Interim History: The nursing staff reported the patient slept well last night, he woke up at midnight receive Ativan 2 mg with fair effect. He had been common cooperative he was up early this morning and had his breakfast. The social service coordinator reported that he was been referred to pace program. On interview the patient is confused he does not understand why he is here and explained him that we are giving him medications for his dementia and psychosis. No insight into his condition Mental Status Exam Mental Status Exam Patient Appearance: Appropriate Patient Orientation: Person Level of Consciousness: Awake and Appropriate Patient Behavior: Guarded and Passive Mood Description: Withdrawn Affect Description: Constricted Patient Cognition Impaired: Yes Ability to Follow Directions: Fair Speech Pattern: Clear Hallucinations: None Delusions: Paranoid Ideation and Grandiose Thought Process: Evasive Thought Content: positive for [place] and positive for Thought Blocking Judgement: Fair Diagnostics Vital Signs (24Hr): Vital Signs - 24 hr 11/10/22 18:00 11/11/22 08:04 Temperature 97.9 F 97.9 F Pulse Rate 69 64 Respiratory Rate 16 17 Blood Pressure 99/51 L 129/62 Pulse Oximetry 96 97 Oxygen Delivery Method Room Air Room Air BMI result Body Mass Index 21.9 Labs 11/06/22 07:53 Imaging Radiology Impressions: ITS Impressions Hand/Wrist X-Ray 11/08/22 16:25 IMPRESSION: Old trauma to the middle phalanx of the left third finger and multiple adjacent soft tissue foreign bodies. Mild arthritis first FPC joint. Osteopenia. Orbit X-Ray 11/11/22 12:06 IMPRESSION: No radiopaque metallic foreign body seen in the orbits. Medications Medications Current Medications Acetaminophen (Acetaminophen 325 Mg Tablet) 650 mg PO Q6H PRN PRN Reason: Headache/Pain Mild Scale (1-3) Last Admin: 11/10/22 21:03 Dose: 650 mg Al Hydroxide/Mg Hydroxide (Magnesium Hydrox/Alum Hydrox 30 Ml Oral.Susp) 30 ml PO Q6H PRN PRN Reason: Heartburn/Nausea Celecoxib (Celecoxib 200 Mg Capsule) 200 mg PO DAILY [facility] Last Admin: 11/11/22 08:07 Dose: 200 mg Donepezil HCl (Donepezil Hcl 10 Mg Tablet) 10 mg PO BEDTIME [facility] Last Admin: 11/10/22 21:03 Dose: 10 mg Hydroxyzine HCl (Hydroxyzine Hcl 25 Mg Tablet) 25 mg PO Q6H PRN PRN Reason: Anxiety Last Admin: 11/10/22 21:03 Dose: 25 mg Lorazepam (Lorazepam 1 Mg Tablet) 2 mg PO BEDTIME [facility] Magnesium Hydroxide (Milk Of Magnesia 30 Ml Oral.Susp) 30 ml PO DAILY PRN PRN Reason: Constipation Memantine (Memantine Hcl 10 Mg Tablet) 10 mg PO BID [facility] Last Admin: 11/11/22 08:07 Dose: 10 mg Nicotine (Nicotine 21 Mg Patch.Td24) 21 mg TRANSDERMA DAILY [facility] Last Admin: 11/11/22 08:10 Dose: 21 mg Nicotine Polacrilex (Nicotine Polacrilex 2 Mg Gum) 2 mg BUCCAL Q2H PRN PRN Reason: smoking Last Admin: 11/07/22 23:13 Dose: 2 mg Olanzapine (Olanzapine Odt 10 Mg Tab.Rapdis) 10 mg TRANSLINGU DAILY@1700 [facility] Last Admin: 11/10/22 16:52 Dose: 10 mg Trazodone HCl (Trazodone Hcl 50 Mg Tablet) 50 mg PO BEDTIME MRX1 PRN PRN Reason: Insomnia Last Admin: 11/10/22 21:03 Dose: 50 mg Vitamin D (Cholecalciferol (Vitamin D3) 25 Mcg Tablet) 25 mcg PO DAILY [facility] Last Admin: 11/11/22 08:07 Dose: 25 mcg Allergies Allergies Allergy/AdvReac Type Severity Reaction Status Date / Time No Known Allergies Allergy Verified 11/05/22 13:53 Assessment & Plan Assessment & Plan (1) Dementia: Status: Acute Code(s): F03.90 - Unspecified dementia, unspecified severity, without behavioral disturbance, psychotic disturbance, mood disturbance, and anxiety (2) Medical clearance for psychiatric admission: Status: Acute Code(s): Z00.8 - Encounter for other general examination Plan Pt is a 67-year-old male with no known significant PMH who is admitted to [facility] for unusual and aggressive behavior. Patient apparently has been having memory loss for the past 2 years though it has increased lately. reports neighbors have file in respite order S patient has been leaving uncooked food on their porch is and threatening to hit them. also reports patient experiencing auditory and visual hallucinations and has witnessed him having full conversations with the bahena. Medical consult for admission H&P. Mood disorder Plan as per Psychiatry Dementia Continue donepezil Plan 1. Gather collateral information. 2. Increase Zyprexa to 5 mg p.o. q.h.s. to target psychosis. On November 10 we change Zyprexa 10 mg p.o. at 17:00 3. We are continue with Aricept 10 mg p.o. q.h.s., we are considering adding Namenda but we need more collateral information. 4. Family meeting for 11/07 with his . 5. MRI head R/o Lewy body or frontotemporaral. So far we couldn't get an MRI yet. 6. Ativan 2 mg po at bedtime Reason for continued inpatient stay Substantial Risk for: inability to function, rapid decompensation and med/psych decompensation Time Spent With Patient Time: Total time managing care of this patient today ___20_ minutes.
[2022-11-11] MEDS: OLANZapine ODT 10 MG TAB.RAPDIS TRANSLINGU (17:04)
[2022-11-11 20:07] VITALS: BP 130/65; PULSE 65; RESP 18; TEMP 36.1; O2SAT 99
[2022-11-11] MEDS: LORazepam 1 MG TABLET 2 MG PO (20:24)
[2022-11-11] MEDS: Donepezil HCl 10 MG TABLET PO (20:24)
[2022-11-11] MEDS: traZODone HCL 50 MG TABLET PO (23:31)
[2022-11-11] MEDS: hydrOXYzine HCL 25 MG TABLET PO (23:31)
[2022-11-12 06:00] VITALS: BP 123/83; PULSE 67; RESP 18; TEMP 36.7; O2SAT 98
[2022-11-12] MEDS: Cholecalciferol (Vitamin D3) 25 MCG TABLET PO (08:55)
[2022-11-12] MEDS: Nicotine 21 MG PATCH.TD24 TRANSDERMA (08:55)
[2022-11-12] MEDS: Memantine HCl 10 MG TABLET PO ×2 (08:56→20:11)
[2022-11-12] MEDS: Celecoxib 200 MG CAPSULE PO (08:56)
[2022-11-12] MEDS: LORazepam 1 MG TABLET 2 MG PO ×2 (11:59→20:10)
--- NOTE | 2022-11-12 14:59 | HO.PSYCHPN ---
Subjective Subjective Date of Service: 11/12/22 Reason For Visit: Psychosis Subjective Notes: Conditional Voluntary Interim History: The nursing staff reported that the patient had been pleasant but confused, compliant with treatment. The director of social services reported that they are looking for day programs for discharge planning. Today his called me and I explained him that we are doing an MRI today to get a clear diagnosis. MRI could results came back with frontoparietal bilateral lesions, most likely multifactorial dementia. On interview the patient is pleasantly confused denies visual or auditory hallucinations. Mental Status Exam Mental Status Exam Patient Appearance: Well Grooomed and Appropriate Patient Orientation: Person and Situation Level of Consciousness: Awake and Appropriate Patient Behavior: Guarded and Passive Mood Description: Withdrawn Affect Description: Constricted Patient Cognition Impaired: Yes Ability to Follow Directions: Good Speech Pattern: Clear Hallucinations: None Delusions: Not Present Thought Process: Distracted and Evasive Thought Content: positive for [place], positive for [place] and positive for Poverty of Content Judgement: Fair Diagnostics Vital Signs (24Hr): Vital Signs - 24 hr 11/11/22 20:07 11/12/22 06:00 Temperature 96.9 F 98.0 F Pulse Rate 65 67 Respiratory Rate 18 18 Blood Pressure 130/65 123/83 Pulse Oximetry 99 98 Oxygen Delivery Method Room Air Room Air BMI result Body Mass Index 21.9 Labs 11/06/22 07:53 Imaging Radiology Impressions: ITS Impressions Hand/Wrist X-Ray 11/08/22 16:25 IMPRESSION: Old trauma to the middle phalanx of the left third finger and multiple adjacent soft tissue foreign bodies. Mild arthritis first FCI joint. Osteopenia. Orbit X-Ray 11/11/22 12:06 IMPRESSION: No radiopaque metallic foreign body seen in the orbits. Brain MRI 11/12/22 13:50 IMPRESSION: There is global cerebral volume loss with a frontoparietal lobar predominance at the high convexity. There is mild chronic microangiopathy. Medications Medications Current Medications Acetaminophen (Acetaminophen 325 Mg Tablet) 650 mg PO Q6H PRN PRN Reason: Headache/Pain Mild Scale (1-3) Last Admin: 11/10/22 21:03 Dose: 650 mg Al Hydroxide/Mg Hydroxide (Magnesium Hydrox/Alum Hydrox 30 Ml Oral.Susp) 30 ml PO Q6H PRN PRN Reason: Heartburn/Nausea Celecoxib (Celecoxib 200 Mg Capsule) 200 mg PO DAILY [facility] Last Admin: 11/12/22 08:56 Dose: 200 mg Donepezil HCl (Donepezil Hcl 10 Mg Tablet) 10 mg PO BEDTIME [facility] Last Admin: 11/11/22 20:24 Dose: 10 mg Hydroxyzine HCl (Hydroxyzine Hcl 25 Mg Tablet) 25 mg PO Q6H PRN PRN Reason: Anxiety Last Admin: 11/11/22 23:31 Dose: 25 mg Lorazepam (Lorazepam 1 Mg Tablet) 2 mg PO BEDTIME [facility] Last Admin: 11/11/22 20:24 Dose: 2 mg Magnesium Hydroxide (Milk Of Magnesia 30 Ml Oral.Susp) 30 ml PO DAILY PRN PRN Reason: Constipation Memantine (Memantine Hcl 10 Mg Tablet) 10 mg PO BID [facility] Last Admin: 11/12/22 08:56 Dose: 10 mg Nicotine (Nicotine 21 Mg Patch.Td24) 21 mg TRANSDERMA DAILY [facility] Last Admin: 11/12/22 08:55 Dose: 21 mg Nicotine Polacrilex (Nicotine Polacrilex 2 Mg Gum) 2 mg BUCCAL Q2H PRN PRN Reason: smoking Last Admin: 11/07/22 23:13 Dose: 2 mg Olanzapine (Olanzapine Odt 10 Mg Tab.Rapdis) 10 mg TRANSLINGU DAILY@1700 [facility] Last Admin: 11/11/22 17:04 Dose: 10 mg Trazodone HCl (Trazodone Hcl 50 Mg Tablet) 50 mg PO BEDTIME MRX1 PRN PRN Reason: Insomnia Last Admin: 11/11/22 23:31 Dose: 50 mg Vitamin D (Cholecalciferol (Vitamin D3) 25 Mcg Tablet) 25 mcg PO DAILY [facility] Last Admin: 11/12/22 08:55 Dose: 25 mcg Allergies Allergies Allergy/AdvReac Type Severity Reaction Status Date / Time No Known Allergies Allergy Verified 11/05/22 13:53 Assessment & Plan Assessment & Plan (1) Dementia: Status: Acute Code(s): F03.90 - Unspecified dementia, unspecified severity, without behavioral disturbance, psychotic disturbance, mood disturbance, and anxiety (2) Medical clearance for psychiatric admission: Status: Acute Code(s): Z00.8 - Encounter for other general examination Plan Pt is a 67-year-old male with no known significant PMH who is admitted to [facility] for unusual and aggressive behavior. Patient apparently has been having memory loss for the past 2 years though it has increased lately. reports neighbors have file in respite order S patient has been leaving uncooked food on their porch is and threatening to hit them. also reports patient experiencing auditory and visual hallucinations and has witnessed him having full conversations with the bahena. Medical consult for admission H&P. Mood disorder Plan as per Psychiatry Dementia Continue donepezil Plan 1. Gather collateral information. 2. Increase Zyprexa to 5 mg p.o. q.h.s. to target psychosis. On November 10 we change Zyprexa 10 mg p.o. at 17:00 3. We are continue with Aricept 10 mg p.o. q.h.s., we are considering adding Namenda but we need more collateral information. 4. Family meeting for 11/07 with his . 5. MRI head R/o Lewy body or frontotemporaral. So far we couldn't get an MRI yet. 6. Ativan 2 mg po at bedtime 7. Ativan 2 mg half an hour before MRI Reason for continued inpatient stay Substantial Risk for: inability to function, rapid decompensation and med/psych decompensation Time Spent With Patient Time: Total time managing care of this patient today __20__ minutes.
[2022-11-12 18:00] VITALS: BP 121/68; PULSE 76; RESP 16; TEMP 36.8; O2SAT 97
[2022-11-12] MEDS: OLANZapine ODT 10 MG TAB.RAPDIS TRANSLINGU (18:19)
[2022-11-12] MEDS: Donepezil HCl 10 MG TABLET PO (20:11)
[2022-11-12] MEDS: hydrOXYzine HCL 25 MG TABLET PO (23:46)
[2022-11-12] MEDS: traZODone HCL 50 MG TABLET PO (23:46)
[2022-11-13] MEDS: OLANZapine ODT 10 MG TAB.RAPDIS TRANSLINGU ×2 (01:15→18:54)
[2022-11-13 07:00] VITALS: BMI 22.4
[2022-11-13 09:17] VITALS: BP 132/96; PULSE 75; RESP 16; TEMP 36.7; O2SAT 98
[2022-11-13] MEDS: Nicotine 21 MG PATCH.TD24 TRANSDERMA (09:19)
[2022-11-13] MEDS: cloNIDine HCL 0.1 MG TABLET PO (09:25)
[2022-11-13] MEDS: Acetaminophen 325 MG TABLET 650 MG PO (09:25)
[2022-11-13] MEDS: Memantine HCl 10 MG TABLET PO ×2 (13:10→20:07)
--- NOTE | 2022-11-13 14:03 | HO.PSYCHPN ---
Subjective Subjective Date of Service: 11/13/22 Reason For Visit: Psychosis Subjective Notes: Conditional Voluntary Interim History: The nursing staff reported the patient had been pleasant in the morning, cooperative. Overnight, he was exit seeking and anxious and he needed 1 dose of Zyprexa 10 mg p.o.. On interview, the patient is pleasantly confused I explained him that the MRI did not show new findings we sized the frontal and parietal impairment. We decided to discontinue Vistaril for anxiety and start using trazodone 50 p.o. t.i.d. p.r.n. anxiety and lower in Ativan to 1 mg p.o. q.h.s. Mental Status Exam Mental Status Exam Patient Appearance: Well Grooomed and Appropriate Patient Orientation: Person and Situation Level of Consciousness: Awake and Appropriate Patient Behavior: Cooperative and Passive Mood Description: Withdrawn Affect Description: Labile Patient Cognition Impaired: Yes Ability to Follow Directions: Good Speech Pattern: Clear Hallucinations: None Delusions: Not Present Thought Process: Distracted and Slowed Thinking Thought Content: positive for [place] and positive for Poverty of Content Judgement: Poor Diagnostics Vital Signs (24Hr): Vital Signs - 24 hr 11/12/22 18:00 11/13/22 09:17 Temperature 98.2 F 98.0 F Pulse Rate 76 75 Respiratory Rate 16 16 Blood Pressure 121/68 132/96 H Pulse Oximetry 97 98 Oxygen Delivery Method Room Air Room Air BMI result Body Mass Index 22.4 Labs 11/06/22 07:53 Imaging Radiology Impressions: ITS Impressions Hand/Wrist X-Ray 11/08/22 16:25 IMPRESSION: Old trauma to the middle phalanx of the left third finger and multiple adjacent soft tissue foreign bodies. Mild arthritis first SHELTER joint. Osteopenia. Orbit X-Ray 11/11/22 12:06 IMPRESSION: No radiopaque metallic foreign body seen in the orbits. Brain MRI 11/12/22 13:50 IMPRESSION: There is global cerebral volume loss with a frontoparietal lobar predominance at the high convexity. There is mild chronic microangiopathy. Medications Medications Current Medications Acetaminophen (Acetaminophen 325 Mg Tablet) 650 mg PO Q6H PRN PRN Reason: Headache/Pain Mild Scale (1-3) Last Admin: 11/13/22 09:25 Dose: 650 mg Al Hydroxide/Mg Hydroxide (Magnesium Hydrox/Alum Hydrox 30 Ml Oral.Susp) 30 ml PO Q6H PRN PRN Reason: Heartburn/Nausea Celecoxib (Celecoxib 200 Mg Capsule) 200 mg PO DAILY [facility] Last Admin: 11/13/22 09:19 Dose: 200 mg Donepezil HCl (Donepezil Hcl 10 Mg Tablet) 10 mg PO BEDTIME [facility] Last Admin: 11/12/22 20:11 Dose: 10 mg Lorazepam (Lorazepam 1 Mg Tablet) 1 mg PO BEDTIME [facility] Magnesium Hydroxide (Milk Of Magnesia 30 Ml Oral.Susp) 30 ml PO DAILY PRN PRN Reason: Constipation Memantine (Memantine Hcl 10 Mg Tablet) 10 mg PO BID [facility] Last Admin: 11/13/22 13:10 Dose: 10 mg Nicotine (Nicotine 21 Mg Patch.Td24) 21 mg TRANSDERMA DAILY [facility] Last Admin: 11/13/22 09:19 Dose: 21 mg Nicotine Polacrilex (Nicotine Polacrilex 2 Mg Gum) 2 mg BUCCAL Q2H PRN PRN Reason: smoking Last Admin: 11/07/22 23:13 Dose: 2 mg Olanzapine (Olanzapine Odt 10 Mg Tab.Rapdis) 10 mg TRANSLINGU DAILY@1700 [facility] Last Admin: 11/12/22 18:19 Dose: 10 mg Trazodone HCl (Trazodone Hcl 50 Mg Tablet) 50 mg PO BEDTIME PRN PRN Reason: Insomnia Trazodone HCl (Trazodone Hcl 50 Mg Tablet) 50 mg PO TID PRN PRN Reason: Anxiety Vitamin D (Cholecalciferol (Vitamin D3) 25 Mcg Tablet) 25 mcg PO DAILY [facility] Last Admin: 11/13/22 09:19 Dose: 25 mcg Allergies Allergies Allergy/AdvReac Type Severity Reaction Status Date / Time No Known Allergies Allergy Verified 11/05/22 13:53 Assessment & Plan Assessment & Plan (1) Dementia: Status: Acute Code(s): F03.90 - Unspecified dementia, unspecified severity, without behavioral disturbance, psychotic disturbance, mood disturbance, and anxiety (2) Medical clearance for psychiatric admission: Status: Acute Code(s): Z00.8 - Encounter for other general examination Plan Pt is a 67-year-old male with no known significant PMH who is admitted to [facility] for unusual and aggressive behavior. Patient apparently has been having memory loss for the past 2 years though it has increased lately. reports neighbors have file in respite order S patient has been leaving uncooked food on their porch is and threatening to hit them. also reports patient experiencing auditory and visual hallucinations and has witnessed him having full conversations with the bahena. Medical consult for admission H&P. Mood disorder Plan as per Psychiatry Dementia Continue donepezil Plan 1. Gather collateral information. 2. Increase Zyprexa to 5 mg p.o. q.h.s. to target psychosis. On November 10 we change Zyprexa 10 mg p.o. at 17:00 3. We are continue with Aricept 10 mg p.o. q.h.s., we are considering adding Namenda but we need more collateral information. 4. Family meeting for 11/07 with his . 5. MRI head R/o Lewy body or frontotemporaral. So far we couldn't get an MRI yet. 6. Ativan 2 mg po at bedtime, it was lowered to 1 mg p.o. q.h.s. walked over 50 7. Ativan 2 mg half an hour before MRI done on November 12. 8. Vistaril discontinue and started on trazodone 50 p.o. t.i.d. p.r.n. anxiety on November 13 Reason for continued inpatient stay Substantial Risk for: inability to function, rapid decompensation and med/psych decompensation Time Spent With Patient Time: Total time managing care of this patient today __20__ minutes.
[2022-11-13 18:00] VITALS: BP 123/64; PULSE 72; RESP 18; TEMP 36.5; O2SAT 99
[2022-11-13] MEDS: Donepezil HCl 10 MG TABLET PO (20:07)
[2022-11-14 07:51] VITALS: BP 135/63; PULSE 72; RESP 19; TEMP 36.4; O2SAT 97
[2022-11-14] MEDS: Memantine HCl 10 MG TABLET PO ×2 (07:59→20:11)
[2022-11-14] MEDS: Nicotine 21 MG PATCH.TD24 TRANSDERMA (08:02)
[2022-11-14] MEDS: OLANZapine ODT 10 MG TAB.RAPDIS TRANSLINGU (17:08)
[2022-11-14 18:00] VITALS: BP 118/65; PULSE 77; RESP 18; TEMP 36.7; O2SAT 98
--- NOTE | 2022-11-14 21:06 | HO.PSYCHPN ---
Subjective Subjective Date of Service: 11/14/22 Reason For Visit: Psychosis Subjective Notes: Conditional Voluntary Interim History: Pt pleasant on approach but not oriented to situation or place. He reports his not taking him back, which is not the case. He thinks may not know where he is and wants to this magazine writer to let her know. Pt denies SI/HI. No overt psychosis or delusions. Pt slept better last night than night prior but tendency to sundowning. No aggression towards self or others. Medication Compliance: Yes Review of Systems Review of Systems Unable to obtain due to patient's mentation Yes all other systems are reviewed and are negative Mental Status Exam Mental Status Exam Patient Appearance: Well Grooomed and Appropriate Patient Orientation: Person and Situation Level of Consciousness: Awake and Appropriate Patient Behavior: Cooperative and Passive Mood Description: Withdrawn Affect Description: Labile Patient Cognition Impaired: Yes Ability to Follow Directions: Good Speech Pattern: Clear Diagnostics Vital Signs (24Hr): Vital Signs - 24 hr 11/14/22 07:51 11/14/22 18:00 Temperature 97.5 F 98.0 F Pulse Rate 72 77 Respiratory Rate 19 18 Blood Pressure 135/63 118/65 Pulse Oximetry 97 98 Oxygen Delivery Method Room Air Room Air BMI result Body Mass Index 22.4 Labs 11/06/22 07:53 Labs: Laboratory Results - last 48 hr 11/14/22 08:35 Triglycerides 56 Cholesterol 172 LDL Cholesterol, Calc 106 H HDL Cholesterol 55 Imaging Radiology Impressions: ITS Impressions Hand/Wrist X-Ray 11/08/22 16:25 IMPRESSION: Old trauma to the middle phalanx of the left third finger and multiple adjacent soft tissue foreign bodies. Mild arthritis first LONG TERM joint. Osteopenia. Orbit X-Ray 11/11/22 12:06 IMPRESSION: No radiopaque metallic foreign body seen in the orbits. Brain MRI 11/12/22 13:50 IMPRESSION: There is global cerebral volume loss with a frontoparietal lobar predominance at the high convexity. There is mild chronic microangiopathy. Medications Medications Current Medications Acetaminophen (Acetaminophen 325 Mg Tablet) 650 mg PO Q6H PRN PRN Reason: Headache/Pain Mild Scale (1-3) Last Admin: 11/13/22 09:25 Dose: 650 mg Al Hydroxide/Mg Hydroxide (Magnesium Hydrox/Alum Hydrox 30 Ml Oral.Susp) 30 ml PO Q6H PRN PRN Reason: Heartburn/Nausea Celecoxib (Celecoxib 200 Mg Capsule) 200 mg PO DAILY [facility] Last Admin: 11/14/22 07:59 Dose: 200 mg Donepezil HCl (Donepezil Hcl 10 Mg Tablet) 10 mg PO BEDTIME [facility] Last Admin: 11/14/22 20:11 Dose: 10 mg Lorazepam (Lorazepam 1 Mg Tablet) 1 mg PO BEDTIME [facility] Last Admin: 11/14/22 20:11 Dose: 1 mg Magnesium Hydroxide (Milk Of Magnesia 30 Ml Oral.Susp) 30 ml PO DAILY PRN PRN Reason: Constipation Memantine (Memantine Hcl 10 Mg Tablet) 10 mg PO BID [facility] Last Admin: 11/14/22 20:11 Dose: 10 mg Nicotine (Nicotine 21 Mg Patch.Td24) 21 mg TRANSDERMA DAILY [facility] Last Admin: 11/14/22 08:02 Dose: 21 mg Nicotine Polacrilex (Nicotine Polacrilex 2 Mg Gum) 2 mg BUCCAL Q2H PRN PRN Reason: smoking Last Admin: 11/07/22 23:13 Dose: 2 mg Olanzapine (Olanzapine Odt 10 Mg Tab.Rapdis) 10 mg TRANSLINGU DAILY@1700 [facility] Last Admin: 11/14/22 17:08 Dose: 10 mg Trazodone HCl (Trazodone Hcl 50 Mg Tablet) 50 mg PO BEDTIME PRN PRN Reason: Insomnia Last Admin: 11/14/22 20:11 Dose: 50 mg Trazodone HCl (Trazodone Hcl 50 Mg Tablet) 50 mg PO TID PRN PRN Reason: Anxiety Last Admin: 11/14/22 18:28 Dose: 50 mg Vitamin D (Cholecalciferol (Vitamin D3) 25 Mcg Tablet) 25 mcg PO DAILY [facility] Last Admin: 11/14/22 07:59 Dose: 25 mcg Allergies Allergies Allergy/AdvReac Type Severity Reaction Status Date / Time No Known Allergies Allergy Verified 11/05/22 13:53 Assessment & Plan Assessment & Plan (1) Major neurocognitive disorder: Status: Acute Code(s): F03.90 - Unspecified dementia, unspecified severity, without behavioral disturbance, psychotic disturbance, mood disturbance, and anxiety Plan Pt is a 67-year-old male with no known significant PMH who is admitted to [facility] for unusual and aggressive behavior. Patient apparently has been having memory loss for the past 2 years though it has increased lately. reports neighbors have file in respite order S patient has been leaving uncooked food on their porch is and threatening to hit them. also reports patient experiencing auditory and visual hallucinations and has witnessed him having full conversations with the bahena. Medical consult for admission H&P. Mood disorder Plan as per Psychiatry Dementia Continue donepezil Plan 1. Gather collateral information. 2. Increase Zyprexa to 5 mg p.o. q.h.s. to target psychosis. On November 10 we change Zyprexa 10 mg p.o. at 17:00 3. We are continue with Aricept 10 mg p.o. q.h.s., we are considering adding Namenda but we need more collateral information. 4. Family meeting for 11/07 with his . 5. MRI head R/o Lewy body or frontotemporaral. So far we couldn't get an MRI yet. 6. Ativan 2 mg po at bedtime, it was lowered to 1 mg p.o. q.h.s. walked over 50 7. Ativan 2 mg half an hour before MRI done on November 12. 8. Vistaril discontinue and started on trazodone 50 p.o. t.i.d. p.r.n. anxiety on November 1311/14 continue tx. Reason for continued inpatient stay Substantial Risk for: inability to function Time Spent With Patient Time: Total time managing care of this patient today ____ minutes.
[2022-11-15 08:49] VITALS: BP 124/62; PULSE 73; RESP 18; TEMP 36.6; O2SAT 95
[2022-11-15] MEDS: Memantine HCl 10 MG TABLET PO (08:52)
--- NOTE | 2022-11-15 12:34 | HO.PSYCHPN ---
Subjective Subjective Date of Service: 11/15/22 Reason For Visit: Psychosis Interim History: The patient was seen and discussed with the nursing team. He reports that he has been feeling better than he was yesterday. He complains of his hearing aid's batteries running out and having a hard time holding a conversation. He is however talkative. His thought process is circumstantial. He says that his behavior at home was to avoid being aggressive with their neighbors. He is unclear around the circumstances. He starts crying and says I just want to go home to my . He was noted to have a fluctuating mood during the meeting. He denies SI/HI/AVH. He is visible in the milieu. Review of Systems Review of Systems Unable to obtain due to patient's mentation Yes all other systems are reviewed and are negative Mental Status Exam Mental Status Exam Patient Appearance: Well Grooomed and Appropriate Patient Orientation: Person and Situation Level of Consciousness: Awake and Appropriate Patient Behavior: Cooperative and Passive Mood Description: Withdrawn Affect Description: Labile Patient Cognition Impaired: Yes Ability to Follow Directions: Good Speech Pattern: Clear Diagnostics Vital Signs (24Hr): Vital Signs - 24 hr 11/14/22 18:00 11/15/22 08:49 Temperature 98.0 F 97.9 F Pulse Rate 77 73 Respiratory Rate 18 18 Blood Pressure 118/65 124/62 Pulse Oximetry 98 95 Oxygen Delivery Method Room Air Room Air BMI result Body Mass Index 22.4 Labs 11/06/22 07:53 Labs: Laboratory Results - last 48 hr 11/14/22 08:35 Triglycerides 56 Cholesterol 172 LDL Cholesterol, Calc 106 H HDL Cholesterol 55 Imaging Radiology Impressions: ITS Impressions Hand/Wrist X-Ray 11/08/22 16:25 IMPRESSION: Old trauma to the middle phalanx of the left third finger and multiple adjacent soft tissue foreign bodies. Mild arthritis first [facility] joint. Osteopenia. Orbit X-Ray 11/11/22 12:06 IMPRESSION: No radiopaque metallic foreign body seen in the orbits. Brain MRI 11/12/22 13:50 IMPRESSION: There is global cerebral volume loss with a frontoparietal lobar predominance at the high convexity. There is mild chronic microangiopathy. Medications Medications Current Medications Acetaminophen (Acetaminophen 325 Mg Tablet) 650 mg PO Q6H PRN PRN Reason: Headache/Pain Mild Scale (1-3) Last Admin: 11/13/22 09:25 Dose: 650 mg Al Hydroxide/Mg Hydroxide (Magnesium Hydrox/Alum Hydrox 30 Ml Oral.Susp) 30 ml PO Q6H PRN PRN Reason: Heartburn/Nausea Celecoxib (Celecoxib 200 Mg Capsule) 200 mg PO DAILY [facility] Last Admin: 11/15/22 08:52 Dose: 200 mg Donepezil HCl (Donepezil Hcl 10 Mg Tablet) 10 mg PO BEDTIME [facility] Last Admin: 11/14/22 20:11 Dose: 10 mg Lorazepam (Lorazepam 1 Mg Tablet) 1 mg PO BEDTIME [facility] Last Admin: 11/14/22 20:11 Dose: 1 mg Magnesium Hydroxide (Milk Of Magnesia 30 Ml Oral.Susp) 30 ml PO DAILY PRN PRN Reason: Constipation Memantine (Memantine Hcl 10 Mg Tablet) 10 mg PO BID [facility] Last Admin: 11/15/22 08:52 Dose: 10 mg Nicotine (Nicotine 21 Mg Patch.Td24) 21 mg TRANSDERMA DAILY [facility] Last Admin: 11/15/22 08:51 Dose: 21 mg Nicotine Polacrilex (Nicotine Polacrilex 2 Mg Gum) 2 mg BUCCAL Q2H PRN PRN Reason: smoking Last Admin: 11/07/22 23:13 Dose: 2 mg Olanzapine (Olanzapine Odt 10 Mg Tab.Rapdis) 10 mg TRANSLINGU DAILY@1700 [facility] Last Admin: 11/14/22 17:08 Dose: 10 mg Trazodone HCl (Trazodone Hcl 50 Mg Tablet) 50 mg PO BEDTIME PRN PRN Reason: Insomnia Last Admin: 11/14/22 20:11 Dose: 50 mg Trazodone HCl (Trazodone Hcl 50 Mg Tablet) 50 mg PO TID PRN PRN Reason: Anxiety Last Admin: 11/14/22 18:28 Dose: 50 mg Vitamin D (Cholecalciferol (Vitamin D3) 25 Mcg Tablet) 25 mcg PO DAILY [facility] Last Admin: 11/15/22 08:52 Dose: 25 mcg Allergies Allergies Allergy/AdvReac Type Severity Reaction Status Date / Time No Known Allergies Allergy Verified 11/05/22 13:53 Assessment & Plan Assessment & Plan (1) Major neurocognitive disorder: Status: Acute Code(s): F03.90 - Unspecified dementia, unspecified severity, without behavioral disturbance, psychotic disturbance, mood disturbance, and anxiety Plan Pt is a 67-year-old male with no known significant PMH who is admitted to [facility] for unusual and aggressive behavior. Patient apparently has been having memory loss for the past 2 years though it has increased lately. reports neighbors have file in respite order S patient has been leaving uncooked food on their porch is and threatening to hit them. also reports patient experiencing auditory and visual hallucinations and has witnessed him having full conversations with the bahena. Medical consult for admission H&P. Mood disorder Plan as per Psychiatry Dementia Continue donepezil Plan 1. Gather collateral information. 2. Increase Zyprexa to 5 mg p.o. q.h.s. to target psychosis. On November 10 we change Zyprexa 10 mg p.o. at 17:00 3. We are continue with Aricept 10 mg p.o. q.h.s., we are considering adding Namenda but we need more collateral information. 4. Family meeting for 11/07 with his . 5. MRI head R/o Lewy body or frontotemporaral. So far we couldn't get an MRI yet. 6. Ativan 2 mg po at bedtime, it was lowered to 1 mg p.o. q.h.s. walked over 50 7. Ativan 2 mg half an hour before MRI done on November 12. 8. Vistaril discontinue and started on trazodone 50 p.o. t.i.d. p.r.n. anxiety on November 1311/14 continue tx. 11/15: Continue treatment. Reason for continued inpatient stay Substantial Risk for: inability to function and rapid decompensation Time Spent With Patient Time: Total time managing care of this patient today ____ minutes.
[2022-11-15] MEDS: OLANZapine ODT 10 MG TAB.RAPDIS TRANSLINGU (17:13)
[2022-11-15 19:35] VITALS: BP 132/85; PULSE 70; RESP 18; TEMP 36.6; O2SAT 98
[2022-11-15] MEDS: Acetaminophen 325 MG TABLET 650 MG PO (20:48)
--- NOTE | 2022-11-15 22:07 | PC.NURSE ---
Addendum entered by Lana Montes RN 11/16/22 00:47: Zyprexa 5mg with little effect on patient. He continues to exit seek. He is perseverating over calling and leaving unit to find his car. Provider notified, seroquel 50mg x 1 ordered and administered. Effect pending. Original Note: Patient noted to be increasingly anxious and wandering. Exit seeking with all belongings looking to get out. Unable to redirect, and patient escalating. Provider notified and zyprexa 5mg x 1 ordered and administered. effect pending.
[2022-11-15] MEDS: Nicotine Polacrilex 2 MG GUM BUCCAL (22:53)
[2022-11-16 09:00] VITALS: BP 124/67; PULSE 74; RESP 16; TEMP 36.8; O2SAT 97
--- NOTE | 2022-11-16 19:08 | HO.PSYCHPN ---
Subjective Subjective Date of Service: 11/16/22 Reason For Visit: Psychosis Interim History: The patient was seen and discussed with the nursing team. He is fixated on leaving home. He perseverates on being a good person and not planning on harming self or others. He was circumstantial and confused when talking about the circumstances that brought him to the hospital. He said the neighbor in front of his house was swearing at him and talking profanities about his parents and that he was having sex with his and that he was playing loud music which was exhausting to him. He was paranoid and confused. He was forgetful. He was tearful and saying he wants to be with his family. Last night was agitated after his left and was exit seeking. He was non-redirectable. He had minimal response to 17:00 Zydis and later to 50 mg of Seroquel and additional Zydis 5 mg. He denies SI/HI/AVH. He is visible in the milieu. Review of Systems Review of Systems Unable to obtain due to patient's mentation Yes all other systems are reviewed and are negative Mental Status Exam Mental Status Exam Patient Appearance: Well Grooomed and Appropriate Patient Orientation: Person and Situation Level of Consciousness: Awake and Appropriate Patient Behavior: Cooperative and Passive Mood Description: Withdrawn Affect Description: Labile Patient Cognition Impaired: Yes Ability to Follow Directions: Good Speech Pattern: Clear Diagnostics Vital Signs (24Hr): Vital Signs - 24 hr 11/15/22 19:35 11/16/22 09:00 Temperature 97.8 F 98.2 F Pulse Rate 70 74 Respiratory Rate 18 16 Blood Pressure 132/85 124/67 Pulse Oximetry 98 97 Oxygen Delivery Method Room Air Room Air BMI result Body Mass Index 22.4 Labs 11/06/22 07:53 Imaging Radiology Impressions: ITS Impressions Hand/Wrist X-Ray 11/08/22 16:25 IMPRESSION: Old trauma to the middle phalanx of the left third finger and multiple adjacent soft tissue foreign bodies. Mild arthritis first [facility] joint. Osteopenia. Orbit X-Ray 11/11/22 12:06 IMPRESSION: No radiopaque metallic foreign body seen in the orbits. Brain MRI 11/12/22 13:50 IMPRESSION: There is global cerebral volume loss with a frontoparietal lobar predominance at the high convexity. There is mild chronic microangiopathy. Medications Medications Current Medications Acetaminophen (Acetaminophen 325 Mg Tablet) 650 mg PO Q6H PRN PRN Reason: Headache/Pain Mild Scale (1-3) Last Admin: 11/15/22 20:48 Dose: 650 mg Al Hydroxide/Mg Hydroxide (Magnesium Hydrox/Alum Hydrox 30 Ml Oral.Susp) 30 ml PO Q6H PRN PRN Reason: Heartburn/Nausea Celecoxib (Celecoxib 200 Mg Capsule) 200 mg PO DAILY [facility] Last Admin: 11/16/22 09:17 Dose: 200 mg Donepezil HCl (Donepezil Hcl 10 Mg Tablet) 10 mg PO BEDTIME [facility] Last Admin: 11/15/22 20:17 Dose: 10 mg Lorazepam (Lorazepam 1 Mg Tablet) 1 mg PO BEDTIME [facility] Last Admin: 11/15/22 20:17 Dose: 1 mg Magnesium Hydroxide (Milk Of Magnesia 30 Ml Oral.Susp) 30 ml PO DAILY PRN PRN Reason: Constipation Memantine (Memantine Hcl 10 Mg Tablet) 10 mg PO BID [facility] Last Admin: 11/16/22 09:17 Dose: 10 mg Nicotine (Nicotine 21 Mg Patch.Td24) 21 mg TRANSDERMA DAILY [facility] Last Admin: 11/16/22 09:16 Dose: 21 mg Nicotine Polacrilex (Nicotine Polacrilex 2 Mg Gum) 2 mg BUCCAL Q2H PRN PRN Reason: smoking Last Admin: 11/15/22 22:53 Dose: 2 mg Olanzapine (Olanzapine Odt 10 Mg Tab.Rapdis) 10 mg TRANSLINGU DAILY@1700 [facility] Last Admin: 11/16/22 16:15 Dose: Not Given Risperidone (Risperidone 0.5 Mg Tablet) 0.5 mg PO BID PRN PRN Reason: Psychosis Last Admin: 11/16/22 16:09 Dose: 0.5 mg Trazodone HCl (Trazodone Hcl 50 Mg Tablet) 50 mg PO BEDTIME PRN PRN Reason: Insomnia Last Admin: 11/15/22 20:48 Dose: 50 mg Trazodone HCl (Trazodone Hcl 50 Mg Tablet) 50 mg PO TID PRN PRN Reason: Anxiety Last Admin: 11/15/22 21:50 Dose: 50 mg Vitamin D (Cholecalciferol (Vitamin D3) 25 Mcg Tablet) 25 mcg PO DAILY [facility] Last Admin: 11/16/22 09:17 Dose: 25 mcg Allergies Allergies Allergy/AdvReac Type Severity Reaction Status Date / Time No Known Allergies Allergy Verified 11/05/22 13:53 Assessment & Plan Assessment & Plan (1) Major neurocognitive disorder: Status: Acute Code(s): F03.90 - Unspecified dementia, unspecified severity, without behavioral disturbance, psychotic disturbance, mood disturbance, and anxiety Plan Pt is a 67-year-old male with no known significant PMH who is admitted to [facility] for unusual and aggressive behavior. Patient apparently has been having memory loss for the past 2 years though it has increased lately. reports neighbors have file in respite order S patient has been leaving uncooked food on their porch is and threatening to hit them. also reports patient experiencing auditory and visual hallucinations and has witnessed him having full conversations with the bahena. Medical consult for admission H&P. Mood disorder Plan as per Psychiatry Dementia Continue donepezil Plan 1. Gather collateral information. 2. Increase Zyprexa to 5 mg p.o. q.h.s. to target psychosis. On November 10 we change Zyprexa 10 mg p.o. at 17:00 3. We are continue with Aricept 10 mg p.o. q.h.s., we are considering adding Namenda but we need more collateral information. 4. Family meeting for 11/07 with his . 5. MRI head R/o Lewy body or frontotemporaral. So far we couldn't get an MRI yet. 6. Ativan 2 mg po at bedtime, it was lowered to 1 mg p.o. q.h.s. walked over 50 7. Ativan 2 mg half an hour before MRI done on November 12. 8. Vistaril discontinue and started on trazodone 50 p.o. t.i.d. p.r.n. anxiety on November 1311/14 continue tx. 11/15: Continue treatment. 11/16: Will attempt Risperidone 0.5 mg BID PRN and assess for efficacy. Also consider Depakote. Reason for continued inpatient stay Substantial Risk for: inability to function and rapid decompensation Time Spent With Patient Time: Total time managing care of this patient today ____ minutes.
[2022-11-16 19:40] VITALS: BP 134/68; PULSE 86; RESP 18; TEMP 36.2; O2SAT 100
[2022-11-16] MEDS: Acetaminophen 325 MG TABLET 650 MG PO (20:38)
[2022-11-16] MEDS: OLANZapine ODT 10 MG TAB.RAPDIS TRANSLINGU (22:18)
--- NOTE | 2022-11-17 00:06 | PC.NURSE ---
At approximately 2100, patient becoming increasingly agitated, anxious, restless and pacing unit with bags of clothes. Patient exit seeking and trying to leave. [facility]. Patient becoming less and less able to redirect. Patient observed slamming phone framing and hanging down. PRN risperdal administered with tylenol PRN with no effect. Provider notified at 2210 regarding patient and provider suggested giving 5pm dose of Zyprexa 10mg that was missed earlier in day. Patient compliant with meds. No effect from zyprexa. Reached out again at 2320 due to patient reaching under glass of nursing station and making another 911 phone call. Patient unable to redirect at that time due to increasing agitation. Provider suggested one time dose of depakote. Liquid depakote 375 mg administered. effect pending at this time.
[2022-11-17 09:23] VITALS: BP 113/65; PULSE 79; RESP 16; TEMP 36.2; O2SAT 95
--- NOTE | 2022-11-17 15:11 | HO.PSYCHPN ---
Subjective Subjective Date of Service: 11/17/22 Reason For Visit: Psychosis Interim History: Patient was seen and discussed in rounds today. Records and plans were reviewed. 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 He is not comprehending the situation. He was accepting of my and refusal to discharge him today. He is very much triggered by his 's visit in the evenings and unfortunately because of her work scheduled that is the only time she can come which is in the evenings. I am going to consider maybe increasing his Risperdal Review of Systems Review of Systems Yes all other systems are reviewed and are negative Mental Status Exam Mental Status Exam Patient Appearance: Well Grooomed and Appropriate Patient Orientation: Person and Situation Level of Consciousness: Awake and Appropriate Patient Behavior: Cooperative and Passive Mood Description: Withdrawn Affect Description: Labile Patient Cognition Impaired: Yes Ability to Follow Directions: Good Speech Pattern: Clear Diagnostics Vital Signs (24Hr): Vital Signs - 24 hr 11/16/22 19:40 11/17/22 09:23 Temperature 97.2 F 97.2 F Pulse Rate 86 79 Respiratory Rate 18 16 Blood Pressure 134/68 113/65 Pulse Oximetry 100 95 Oxygen Delivery Method Room Air Room Air BMI result Body Mass Index 22.4 Labs 11/06/22 07:53 Imaging Radiology Impressions: ITS Impressions Hand/Wrist X-Ray 11/08/22 16:25 IMPRESSION: Old trauma to the middle phalanx of the left third finger and multiple adjacent soft tissue foreign bodies. Mild arthritis first CORRECTION joint. Osteopenia. Orbit X-Ray 11/11/22 12:06 IMPRESSION: No radiopaque metallic foreign body seen in the orbits. Brain MRI 11/12/22 13:50 IMPRESSION: There is global cerebral volume loss with a frontoparietal lobar predominance at the high convexity. There is mild chronic microangiopathy. Medications Medications Current Medications Acetaminophen (Acetaminophen 325 Mg Tablet) 650 mg PO Q6H PRN PRN Reason: Headache/Pain Mild Scale (1-3) Last Admin: 11/16/22 20:38 Dose: 650 mg Al Hydroxide/Mg Hydroxide (Magnesium Hydrox/Alum Hydrox 30 Ml Oral.Susp) 30 ml PO Q6H PRN PRN Reason: Heartburn/Nausea Celecoxib (Celecoxib 200 Mg Capsule) 200 mg PO DAILY [facility] Last Admin: 11/17/22 09:30 Dose: 200 mg Donepezil HCl (Donepezil Hcl 10 Mg Tablet) 10 mg PO BEDTIME [facility] Last Admin: 11/16/22 20:35 Dose: 10 mg Lorazepam (Lorazepam 1 Mg Tablet) 1 mg PO BEDTIME [facility] Last Admin: 11/16/22 20:35 Dose: 1 mg Magnesium Hydroxide (Milk Of Magnesia 30 Ml Oral.Susp) 30 ml PO DAILY PRN PRN Reason: Constipation Memantine (Memantine Hcl 10 Mg Tablet) 10 mg PO BID [facility] Last Admin: 11/17/22 09:30 Dose: 10 mg Nicotine (Nicotine 21 Mg Patch.Td24) 21 mg TRANSDERMA DAILY [facility] Last Admin: 11/17/22 09:32 Dose: 21 mg Nicotine Polacrilex (Nicotine Polacrilex 2 Mg Gum) 2 mg BUCCAL Q2H PRN PRN Reason: smoking Last Admin: 11/15/22 22:53 Dose: 2 mg Olanzapine (Olanzapine Odt 10 Mg Tab.Rapdis) 10 mg TRANSLINGU DAILY@1700 [facility] Last Admin: 11/16/22 22:18 Dose: 10 mg Risperidone (Risperidone 0.5 Mg Tablet) 0.5 mg PO BID PRN PRN Reason: Psychosis Last Admin: 11/17/22 13:26 Dose: 0.5 mg Trazodone HCl (Trazodone Hcl 50 Mg Tablet) 50 mg PO BEDTIME PRN PRN Reason: Insomnia Last Admin: 11/16/22 23:51 Dose: 50 mg Trazodone HCl (Trazodone Hcl 50 Mg Tablet) 50 mg PO TID PRN PRN Reason: Anxiety Last Admin: 11/17/22 13:27 Dose: 50 mg Vitamin D (Cholecalciferol (Vitamin D3) 25 Mcg Tablet) 25 mcg PO DAILY [facility] Last Admin: 11/17/22 09:30 Dose: 25 mcg Allergies Allergies Allergy/AdvReac Type Severity Reaction Status Date / Time No Known Allergies Allergy Verified 11/05/22 13:53 Assessment & Plan Assessment & Plan (1) Major neurocognitive disorder: Status: Acute Code(s): F03.90 - Unspecified dementia, unspecified severity, without behavioral disturbance, psychotic disturbance, mood disturbance, and anxiety Plan Pt is a 67-year-old male with no known significant PMH who is admitted to [facility] for unusual and aggressive behavior. Patient apparently has been having memory loss for the past 2 years though it has increased lately. reports neighbors have file in respite order S patient has been leaving uncooked food on their porch is and threatening to hit them. also reports patient experiencing auditory and visual hallucinations and has witnessed him having full conversations with the bahena. Medical consult for admission H&P. Mood disorder Plan as per Psychiatry Dementia Continue donepezil Plan 1. Gather collateral information. 2. Increase Zyprexa to 5 mg p.o. q.h.s. to target psychosis. On November 10 we change Zyprexa 10 mg p.o. at 17:00 3. We are continue with Aricept 10 mg p.o. q.h.s., we are considering adding Namenda but we need more collateral information. 4. Family meeting for 11/07 with his . 5. MRI head R/o Lewy body or frontotemporaral. So far we couldn't get an MRI yet. 6. Ativan 2 mg po at bedtime, it was lowered to 1 mg p.o. q.h.s. walked over 50 7. Ativan 2 mg half an hour before MRI done on November 12. 8. Vistaril discontinue and started on trazodone 50 p.o. t.i.d. p.r.n. anxiety on November 1311/14 continue tx. 11/15: Continue treatment. 11/16: Will attempt Risperidone 0.5 mg BID PRN and assess for efficacy. Also consider Depakote. Reason for continued inpatient stay Substantial Risk for: med/psych decompensation Time Spent With Patient Time: Total time managing care of this patient today ____ minutes.
[2022-11-17] MEDS: OLANZapine ODT 10 MG TAB.RAPDIS TRANSLINGU (16:40)
[2022-11-17 20:00] VITALS: BP 113/65; PULSE 81; RESP 18; TEMP 36.1; O2SAT 96
[2022-11-18 08:46] VITALS: BP 108/63; PULSE 77; RESP 17; TEMP 36.4; O2SAT 98
--- NOTE | 2022-11-18 12:08 | HO.PSYCHPN ---
Subjective Subjective Date of Service: 11/18/22 Reason For Visit: Psychosis Subjective Notes: Conditional Voluntary Interim History: The nursing staff reported the patient had been pleasantly confused, cooperative, stating that he left last night and he came back. The staff has noticed that yesterday he complained of auditory and visual hallucinations last night but he cannot remember having those symptoms on observation today. The health social work professor reported that most likely he could be discharged early next week, he had several referrals for outpatient services. On interview the patient denies new symptoms, confused but redirectable, wants to be discharged soon. Mental Status Exam Mental Status Exam Patient Appearance: Well Grooomed Patient Orientation: Person Level of Consciousness: Awake and Appropriate Patient Behavior: Guarded and Passive Mood Description: Calm Affect Description: Constricted Patient Cognition Impaired: Yes Ability to Follow Directions: Good Speech Pattern: Clear Hallucinations: None Delusions: Paranoid Ideation Thought Process: Distracted Thought Content: positive for [place], positive for [place] and positive for Poverty of Content Judgement: Fair Diagnostics Vital Signs (24Hr): Vital Signs - 24 hr 11/17/22 20:00 11/18/22 08:46 Temperature 96.9 F 97.6 F Pulse Rate 81 77 Respiratory Rate 18 17 Blood Pressure 113/65 108/63 Pulse Oximetry 96 98 Oxygen Delivery Method Room Air Room Air BMI result Body Mass Index 22.4 Labs 11/06/22 07:53 Imaging Radiology Impressions: ITS Impressions Hand/Wrist X-Ray 11/08/22 16:25 IMPRESSION: Old trauma to the middle phalanx of the left third finger and multiple adjacent soft tissue foreign bodies. Mild arthritis first HALFWAY joint. Osteopenia. Orbit X-Ray 11/11/22 12:06 IMPRESSION: No radiopaque metallic foreign body seen in the orbits. Brain MRI 11/12/22 13:50 IMPRESSION: There is global cerebral volume loss with a frontoparietal lobar predominance at the high convexity. There is mild chronic microangiopathy. Medications Medications Current Medications Acetaminophen (Acetaminophen 325 Mg Tablet) 650 mg PO Q6H PRN PRN Reason: Headache/Pain Mild Scale (1-3) Last Admin: 11/16/22 20:38 Dose: 650 mg Al Hydroxide/Mg Hydroxide (Magnesium Hydrox/Alum Hydrox 30 Ml Oral.Susp) 30 ml PO Q6H PRN PRN Reason: Heartburn/Nausea Celecoxib (Celecoxib 200 Mg Capsule) 200 mg PO DAILY [facility] Last Admin: 11/18/22 08:48 Dose: 200 mg Donepezil HCl (Donepezil Hcl 10 Mg Tablet) 10 mg PO BEDTIME [facility] Last Admin: 11/17/22 20:42 Dose: 10 mg Lorazepam (Lorazepam 1 Mg Tablet) 1 mg PO BEDTIME [facility] Last Admin: 11/17/22 20:42 Dose: 1 mg Magnesium Hydroxide (Milk Of Magnesia 30 Ml Oral.Susp) 30 ml PO DAILY PRN PRN Reason: Constipation Memantine (Memantine Hcl 10 Mg Tablet) 10 mg PO BID [facility] Last Admin: 11/18/22 08:48 Dose: 10 mg Nicotine (Nicotine 21 Mg Patch.Td24) 21 mg TRANSDERMA DAILY [facility] Last Admin: 11/18/22 08:48 Dose: 21 mg Nicotine Polacrilex (Nicotine Polacrilex 2 Mg Gum) 2 mg BUCCAL Q2H PRN PRN Reason: smoking Last Admin: 11/15/22 22:53 Dose: 2 mg Olanzapine (Olanzapine Odt 10 Mg Tab.Rapdis) 10 mg TRANSLINGU DAILY@1700 [facility] Last Admin: 11/17/22 16:40 Dose: 10 mg Risperidone (Risperidone 0.5 Mg Tablet) 0.5 mg PO BID PRN PRN Reason: Psychosis Last Admin: 11/17/22 13:26 Dose: 0.5 mg Trazodone HCl (Trazodone Hcl 50 Mg Tablet) 50 mg PO BEDTIME PRN PRN Reason: Insomnia Last Admin: 11/17/22 20:42 Dose: 50 mg Trazodone HCl (Trazodone Hcl 50 Mg Tablet) 50 mg PO TID PRN PRN Reason: Anxiety Last Admin: 11/17/22 13:27 Dose: 50 mg Vitamin D (Cholecalciferol (Vitamin D3) 25 Mcg Tablet) 25 mcg PO DAILY [facility] Last Admin: 11/18/22 08:48 Dose: 25 mcg Allergies Allergies Allergy/AdvReac Type Severity Reaction Status Date / Time No Known Allergies Allergy Verified 11/05/22 13:53 Assessment & Plan Assessment & Plan (1) Major neurocognitive disorder: Status: Acute Code(s): F03.90 - Unspecified dementia, unspecified severity, without behavioral disturbance, psychotic disturbance, mood disturbance, and anxiety Plan Pt is a 67-year-old male with no known significant PMH who is admitted to [facility] for unusual and aggressive behavior. Patient apparently has been having memory loss for the past 2 years though it has increased lately. reports neighbors have file in respite order S patient has been leaving uncooked food on their porch is and threatening to hit them. also reports patient experiencing auditory and visual hallucinations and has witnessed him having full conversations with the bahena. Medical consult for admission H&P. Mood disorder Plan as per Psychiatry Dementia Continue donepezil Plan 1. Gather collateral information. 2. Increase Zyprexa to 5 mg p.o. q.h.s. to target psychosis. On November 10 we change Zyprexa 10 mg p.o. at 17:00 3. We are continue with Aricept 10 mg p.o. q.h.s., we are considering adding Namenda but we need more collateral information. 4. Family meeting for 11/07 with his . 5. MRI head R/o Lewy body or frontotemporaral. So far we couldn't get an MRI yet but later way guarded and there was frontal and periorbital damage most likely due to multifactorial dementia. 6. Ativan 2 mg po at bedtime, it was lowered to 1 mg p.o. q.h.s. walked over 50 7. Ativan 2 mg half an hour before MRI done on November 12. 8. Vistaril discontinue and started on trazodone 50 p.o. t.i.d. p.r.n. anxiety on November 13 Reason for continued inpatient stay Substantial Risk for: inability to function, rapid decompensation and med/psych decompensation Time Spent With Patient Time: Total time managing care of this patient today __20__ minutes.
--- NOTE | 2022-11-18 12:34 | PC.NURSE ---
THIS PATIENT WAS LET OFF THE UNIT BY MACHINE SPECIALIST AROUND 1130. PATIENT WENT OUTSIDE AND WAS STANDING CALMLY IN THE FRONT ENTRANCE TO THE HOSPITAL, WHEN STAFF APPROACHED HIM. HE STATED THAT HE WAS LOOKING FOR FRESH AIR . THIS PATIENT REMAINED ON CAMPUS FOR THE ENTIRE DURATION OF THIS INCIDENT, AND STAFF RETURNED THE PATIENT BACK TO THE UNIT WITHOUT ADDITIONAL CONCERN. PATIENT WAS NOT INJURED AND DENIES ANY QUESTIONS OR CONCERNS.
[2022-11-18] MEDS: OLANZapine ODT 10 MG TAB.RAPDIS TRANSLINGU (17:18)
[2022-11-18 18:00] VITALS: BP 116/61; PULSE 87; RESP 16; TEMP 37; O2SAT 98
[2022-11-18] MEDS: Acetaminophen 325 MG TABLET 650 MG PO (20:29)
[2022-11-19 08:00] VITALS: BP 109/61; PULSE 74; RESP 18; TEMP 36.7; O2SAT 97
--- NOTE | 2022-11-19 15:35 | P.PNPSI_ITS ---
Subjective Subjective Date of Service: 11/19/22 Reason For Visit: Psychosis Subjective Notes: Conditional Voluntary Interim History: The nursing staff reported that last night he was able to get out of the unit, following a visitor. He was asked to go back and he came without any problems. The social work coordinator reported that the family is requesting more time since they have to do a lot of changes at home for his safety. On interview the patient is pleasantly confused I explained him that we will try to discharge him next Thursday. Mental Status Exam Mental Status Exam Patient Appearance: Appropriate Patient Orientation: Person and Situation Level of Consciousness: Awake and Appropriate Patient Behavior: Guarded and Passive Mood Description: Withdrawn Affect Description: Constricted Patient Cognition Impaired: Yes Ability to Follow Directions: Good Speech Pattern: Clear Hallucinations: None Delusions: Not Present Thought Process: Distracted, Evasive and Slowed Thinking Thought Content: positive for [place] and positive for Poverty of Content Judgement: Poor Diagnostics Vital Signs (24Hr): Vital Signs - 24 hr 11/18/22 18:00 11/19/22 08:00 Temperature 98.6 F 98.1 F Pulse Rate 87 74 Respiratory Rate 16 18 Blood Pressure 116/61 109/61 Pulse Oximetry 98 97 Oxygen Delivery Method Room Air Room Air BMI result Body Mass Index 22.4 Labs 11/06/22 07:53 Imaging Radiology Impressions: ITS Impressions Hand/Wrist X-Ray 11/08/22 16:25 IMPRESSION: Old trauma to the middle phalanx of the left third finger and multiple adjacent soft tissue foreign bodies. Mild arthritis first GROUP HOME joint. Osteopenia. Orbit X-Ray 11/11/22 12:06 IMPRESSION: No radiopaque metallic foreign body seen in the orbits. Brain MRI 11/12/22 13:50 IMPRESSION: There is global cerebral volume loss with a frontoparietal lobar predominance at the high convexity. There is mild chronic microangiopathy. Medications Medications Current Medications Acetaminophen (Acetaminophen 325 Mg Tablet) 650 mg PO Q6H PRN PRN Reason: Headache/Pain Mild Scale (1-3) Last Admin: 11/18/22 20:29 Dose: 650 mg Al Hydroxide/Mg Hydroxide (Magnesium Hydrox/Alum Hydrox 30 Ml Oral.Susp) 30 ml PO Q6H PRN PRN Reason: Heartburn/Nausea Celecoxib (Celecoxib 200 Mg Capsule) 200 mg PO DAILY [facility] Last Admin: 11/19/22 08:04 Dose: 200 mg Donepezil HCl (Donepezil Hcl 10 Mg Tablet) 10 mg PO BEDTIME [facility] Last Admin: 11/18/22 20:28 Dose: 10 mg Lorazepam (Lorazepam 1 Mg Tablet) 1 mg PO BEDTIME [facility] Last Admin: 11/18/22 20:28 Dose: 1 mg Magnesium Hydroxide (Milk Of Magnesia 30 Ml Oral.Susp) 30 ml PO DAILY PRN PRN Reason: Constipation Memantine (Memantine Hcl 10 Mg Tablet) 10 mg PO BID [facility] Last Admin: 11/19/22 08:03 Dose: 10 mg Nicotine (Nicotine 21 Mg Patch.Td24) 21 mg TRANSDERMA DAILY [facility] Last Admin: 11/19/22 08:05 Dose: 21 mg Nicotine Polacrilex (Nicotine Polacrilex 2 Mg Gum) 2 mg BUCCAL Q2H PRN PRN Reason: smoking Last Admin: 11/15/22 22:53 Dose: 2 mg Olanzapine (Olanzapine Odt 10 Mg Tab.Rapdis) 10 mg TRANSLINGU DAILY@1700 [facility] Last Admin: 11/18/22 17:18 Dose: 10 mg Risperidone (Risperidone 0.5 Mg Tablet) 0.5 mg PO BID PRN PRN Reason: Psychosis Last Admin: 11/17/22 13:26 Dose: 0.5 mg Trazodone HCl (Trazodone Hcl 50 Mg Tablet) 50 mg PO BEDTIME PRN PRN Reason: Insomnia Last Admin: 11/18/22 20:28 Dose: 50 mg Trazodone HCl (Trazodone Hcl 50 Mg Tablet) 50 mg PO TID PRN PRN Reason: Anxiety Last Admin: 11/17/22 13:27 Dose: 50 mg Trazodone HCl (Trazodone Hcl 100 Mg Tablet) 100 mg PO BEDTIME [facility] Vitamin D (Cholecalciferol (Vitamin D3) 25 Mcg Tablet) 25 mcg PO DAILY [facility] Last Admin: 11/19/22 08:03 Dose: 25 mcg Allergies Allergies Allergy/AdvReac Type Severity Reaction Status Date / Time No Known Allergies Allergy Verified 11/05/22 13:53 Assessment & Plan Assessment & Plan (1) Major neurocognitive disorder: Status: Acute Code(s): F03.90 - Unspecified dementia, unspecified severity, without behavioral disturbance, psychotic disturbance, mood disturbance, and anxiety Plan Pt is a 67-year-old male with no known significant PMH who is admitted to [facility] for unusual and aggressive behavior. Patient apparently has been having memory loss for the past 2 years though it has increased lately. reports neighbors have file in respite order S patient has been leaving uncooked food on their porch is and threatening to hit them. also reports patient experiencing auditory and visual hallucinations and has witnessed him having full conversations with the bahena. Medical consult for admission H&P. Mood disorder Plan as per Psychiatry Dementia Continue donepezil Plan 1. Gather collateral information. 2. Increase Zyprexa to 5 mg p.o. q.h.s. to target psychosis. On November 10 we change Zyprexa 10 mg p.o. at 17:00 3. We are continue with Aricept 10 mg p.o. q.h.s., we are considering adding Namenda but we need more collateral information. 4. Family meeting for 11/07 with his . 5. MRI head R/o Lewy body or frontotemporaral. So far we couldn't get an MRI yet but later way guarded and there was frontal and periorbital damage most likely due to multifactorial dementia. 6. Ativan 2 mg po at bedtime, it was lowered to 1 mg p.o. q.h.s. walked over 50 7. Ativan 2 mg half an hour before MRI done on November 12. 8. Vistaril discontinue and started on trazodone 50 p.o. t.i.d. p.r.n. anxiety on November 13 Reason for continued inpatient stay Substantial Risk for: inability to function, rapid decompensation and med/psych decompensation Time Spent With Patient Time: Total time managing care of this patient today __20__ minutes.
[2022-11-19] MEDS: OLANZapine ODT 10 MG TAB.RAPDIS TRANSLINGU (17:06)
[2022-11-19 19:30] VITALS: BP 123/65; PULSE 65; RESP 18; TEMP 36.4; O2SAT 99
[2022-11-19] MEDS: traZODone HCL 100 MG TABLET PO (19:54)
[2022-11-19] MEDS: LORazepam 1 MG TABLET PO (19:55)
[2022-11-19] MEDS: Donepezil HCl 10 MG TABLET PO (19:55)
[2022-11-19] MEDS: Memantine HCl 10 MG TABLET PO (19:55)
[2022-11-20] MEDS: risperiDONE 0.5 MG TABLET PO ×2 (05:44→20:02)
[2022-11-20] MEDS: traZODone HCL 50 MG TABLET PO ×2 (06:43→18:19)
[2022-11-20 07:00] VITALS: BMI 23.4
[2022-11-20 08:15] VITALS: BP 126/64; PULSE 82; RESP 18; TEMP 36.6; O2SAT 98
[2022-11-20] MEDS: Celecoxib 200 MG CAPSULE PO (08:41)
[2022-11-20] MEDS: Cholecalciferol (Vitamin D3) 25 MCG TABLET PO (08:41)
[2022-11-20] MEDS: Memantine HCl 10 MG TABLET PO ×2 (08:42→20:02)
[2022-11-20] MEDS: Acetaminophen 325 MG TABLET 650 MG PO ×2 (08:42→20:02)
--- NOTE | 2022-11-20 09:03 | P.PNPSI_ITS ---
Subjective Subjective Date of Service: 11/20/22 Reason For Visit: Psychosis Subjective Notes: Conditional Voluntary Interim History: The nursing staff reported the patient had had exit seeking behavior. He pack all his belongings. He slept 7 or 8 hours. On interview the patient had been confused but pleasant, explain him that he is going to be discharged next Thursday but later on, he was agitated he did Zyprexa Zydis p.r.n. for agitation. Mental Status Exam Mental Status Exam Patient Appearance: Well Grooomed and Appropriate Patient Orientation: Person and Situation Level of Consciousness: Awake and Appropriate Patient Behavior: Guarded and Passive Mood Description: Withdrawn Affect Description: Constricted Patient Cognition Impaired: Yes Ability to Follow Directions: Good Speech Pattern: Clear Hallucinations: None Delusions: Ideas of Reference Thought Process: Illogical, Distracted and Slowed Thinking Thought Content: positive for [place] and positive for Poverty of Content Judgement: Poor Diagnostics Vital Signs (24Hr): Vital Signs - 24 hr 11/19/22 19:30 11/20/22 08:15 Temperature 97.6 F 97.9 F Pulse Rate 65 82 Respiratory Rate 18 18 Blood Pressure 123/65 126/64 Pulse Oximetry 99 98 Oxygen Delivery Method Room Air Room Air BMI result Body Mass Index 22.4 Labs 11/06/22 07:53 Imaging Radiology Impressions: ITS Impressions Hand/Wrist X-Ray 11/08/22 16:25 IMPRESSION: Old trauma to the middle phalanx of the left third finger and multiple adjacent soft tissue foreign bodies. Mild arthritis first CORRECTION joint. Osteopenia. Orbit X-Ray 11/11/22 12:06 IMPRESSION: No radiopaque metallic foreign body seen in the orbits. Brain MRI 11/12/22 13:50 IMPRESSION: There is global cerebral volume loss with a frontoparietal lobar predominance at the high convexity. There is mild chronic microangiopathy. Medications Medications Current Medications Acetaminophen (Acetaminophen 325 Mg Tablet) 650 mg PO Q6H PRN PRN Reason: Headache/Pain Mild Scale (1-3) Last Admin: 11/20/22 08:42 Dose: 650 mg Al Hydroxide/Mg Hydroxide (Magnesium Hydrox/Alum Hydrox 30 Ml Oral.Susp) 30 ml PO Q6H PRN PRN Reason: Heartburn/Nausea Celecoxib (Celecoxib 200 Mg Capsule) 200 mg PO DAILY [facility] Last Admin: 10/12/23 08:41 Dose: 200 mg Donepezil HCl (Donepezil Hcl 10 Mg Tablet) 10 mg PO BEDTIME [facility] Last Admin: 11/19/22 19:55 Dose: 10 mg Lorazepam (Lorazepam 1 Mg Tablet) 1 mg PO BEDTIME [facility] Last Admin: 11/19/22 19:55 Dose: 1 mg Magnesium Hydroxide (Milk Of Magnesia 30 Ml Oral.Susp) 30 ml PO DAILY PRN PRN Reason: Constipation Memantine (Memantine Hcl 10 Mg Tablet) 10 mg PO BID [facility] Last Admin: 11/20/22 08:42 Dose: 10 mg Nicotine (Nicotine 21 Mg Patch.Td24) 21 mg TRANSDERMA DAILY [facility] Last Admin: 11/19/22 08:05 Dose: 21 mg Nicotine Polacrilex (Nicotine Polacrilex 2 Mg Gum) 2 mg BUCCAL Q2H PRN PRN Reason: smoking Last Admin: 11/15/22 22:53 Dose: 2 mg Olanzapine (Olanzapine Odt 10 Mg Tab.Rapdis) 10 mg TRANSLINGU DAILY@1700 [facility] Last Admin: 11/19/22 17:06 Dose: 10 mg Risperidone (Risperidone 0.5 Mg Tablet) 0.5 mg PO BID PRN PRN Reason: Psychosis Last Admin: 11/20/22 05:44 Dose: 0.5 mg Trazodone HCl (Trazodone Hcl 50 Mg Tablet) 50 mg PO BEDTIME PRN PRN Reason: Insomnia Last Admin: 11/18/22 20:28 Dose: 50 mg Trazodone HCl (Trazodone Hcl 50 Mg Tablet) 50 mg PO TID PRN PRN Reason: Anxiety Last Admin: 11/20/22 06:43 Dose: 50 mg Trazodone HCl (Trazodone Hcl 100 Mg Tablet) 100 mg PO BEDTIME [facility] Last Admin: 11/19/22 19:54 Dose: 100 mg Vitamin D (Cholecalciferol (Vitamin D3) 25 Mcg Tablet) 25 mcg PO DAILY [facility] Last Admin: 11/20/22 08:41 Dose: 25 mcg Allergies Allergies Allergy/AdvReac Type Severity Reaction Status Date / Time No Known Allergies Allergy Verified 11/05/22 13:53 Assessment & Plan Assessment & Plan (1) Major neurocognitive disorder: Status: Acute Code(s): F03.90 - Unspecified dementia, unspecified severity, without behavioral disturbance, psychotic disturbance, mood disturbance, and anxiety Plan Pt is a 67-year-old male with no known significant PMH who is admitted to [facility] for unusual and aggressive behavior. Patient apparently has been having memory loss for the past 2 years though it has increased lately. reports neighbors have file in respite order S patient has been leaving uncooked food on their porch is and threatening to hit them. also reports patient experiencing auditory and visual hallucinations and has witnessed him having full conversations with the bahena. Medical consult for admission H&P. Mood disorder Plan as per Psychiatry Dementia Continue donepezil Plan 1. Gather collateral information. 2. Increase Zyprexa to 5 mg p.o. q.h.s. to target psychosis. On November 10 we change Zyprexa 10 mg p.o. at 17:00 3. We are continue with Aricept 10 mg p.o. q.h.s., we are considering adding Namenda but we need more collateral information. 4. Family meeting for 11/07 with his . 5. MRI head R/o Lewy body or frontotemporaral. So far we couldn't get an MRI yet but later way guarded and there was frontal and periorbital damage most likely due to multifactorial dementia. 6. Ativan 2 mg po at bedtime, it was lowered to 1 mg p.o. q.h.s. walked over 50 7. Ativan 2 mg half an hour before MRI done on November 12. 8. Vistaril discontinue and started on trazodone 50 p.o. t.i.d. p.r.n. anxiety on November 13. 9. Discharge her next Thursday Reason for continued inpatient stay Substantial Risk for: inability to function, rapid decompensation and med/psych decompensation Time Spent With Patient Time: Total time managing care of this patient today __20__ minutes.
[2022-11-20] MEDS: Nicotine 21 MG PATCH.TD24 TRANSDERMA (09:11)
[2022-11-20] MEDS: OLANZapine ODT 10 MG TAB.RAPDIS TRANSLINGU ×2 (11:30→16:32)
[2022-11-20 18:00] VITALS: BP 121/65; PULSE 86; RESP 18; TEMP 37.1; O2SAT 97
[2022-11-20] MEDS: Nicotine Polacrilex 2 MG GUM BUCCAL (18:36)
--- NOTE | 2022-11-20 19:16 | PC.NURSE ---
Patient with increased anxiety and exit seeking after supper. Saying, I'll call the police if you don't let me go. Trazodone 50mg given prn and visited and reminded patient that he cannot come home until Thursday night after she gets out of work. Nicorette gum also given as requested.
[2022-11-20] MEDS: Donepezil HCl 10 MG TABLET PO (20:02)
[2022-11-20] MEDS: LORazepam 1 MG TABLET PO (20:02)
[2022-11-20] MEDS: traZODone HCL 100 MG TABLET PO (20:02)
[2022-11-21 08:06] VITALS: BP 101/56; PULSE 70; RESP 16; TEMP 36.8; O2SAT 95
[2022-11-21] MEDS: Nicotine 21 MG PATCH.TD24 TRANSDERMA (08:13)
[2022-11-21] MEDS: Cholecalciferol (Vitamin D3) 25 MCG TABLET PO (08:14)
[2022-11-21] MEDS: risperiDONE 0.5 MG TABLET PO (08:14)
[2022-11-21] MEDS: Memantine HCl 10 MG TABLET PO ×2 (08:14→21:10)
[2022-11-21] MEDS: Celecoxib 200 MG CAPSULE PO (08:14)
--- NOTE | 2022-11-21 09:00 | HO.PSYCHPN ---
Subjective Subjective Date of Service: 11/21/22 Reason For Visit: Psychosis Subjective Notes: Conditional Voluntary Interim History: The nursing staff reported the patient has been requesting to be discharged, he had been calling 911 and the telephone it to be shut down. He had been exit seeking and aggressive with another peer but he was easily redirectable. On interview the patient reported that he wanted to be discharged he is unable to process that he has to be discharged on Thursday. The social scientist reported that the is making all the arrangements to having him safe at home. He is going to be discharged tomorrow. Also, recently we found out that he had another charge and I need to write a letter to the court explain that he has dementia. Mental Status Exam Mental Status Exam Patient Appearance: Well Grooomed and Appropriate Patient Orientation: Person and Situation Level of Consciousness: Awake and Appropriate Patient Behavior: Guarded and Passive Mood Description: Calm Affect Description: Constricted Patient Cognition Impaired: Yes Ability to Follow Directions: Good Speech Pattern: Clear Hallucinations: None Delusions: Not Present Thought Process: Distracted and Slowed Thinking Thought Content: positive for [place] and positive for Perseveration Judgement: Poor Diagnostics Vital Signs (24Hr): Vital Signs - 24 hr 11/20/22 18:00 11/21/22 08:06 Temperature 98.8 F 98.2 F Pulse Rate 86 70 Respiratory Rate 18 16 Blood Pressure 121/65 101/56 L Pulse Oximetry 97 95 Oxygen Delivery Method Room Air Room Air BMI result Body Mass Index 23.4 Labs 11/06/22 07:53 Imaging Radiology Impressions: ITS Impressions Hand/Wrist X-Ray 11/08/22 16:25 IMPRESSION: Old trauma to the middle phalanx of the left third finger and multiple adjacent soft tissue foreign bodies. Mild arthritis first FPC joint. Osteopenia. Orbit X-Ray 11/11/22 12:06 IMPRESSION: No radiopaque metallic foreign body seen in the orbits. Brain MRI 11/12/22 13:50 IMPRESSION: There is global cerebral volume loss with a frontoparietal lobar predominance at the high convexity. There is mild chronic microangiopathy. Medications Medications Current Medications Acetaminophen (Acetaminophen 325 Mg Tablet) 650 mg PO Q6H PRN PRN Reason: Headache/Pain Mild Scale (1-3) Last Admin: 11/20/22 20:02 Dose: 650 mg Al Hydroxide/Mg Hydroxide (Magnesium Hydrox/Alum Hydrox 30 Ml Oral.Susp) 30 ml PO Q6H PRN PRN Reason: Heartburn/Nausea Celecoxib (Celecoxib 200 Mg Capsule) 200 mg PO DAILY [facility] Last Admin: 11/21/22 08:14 Dose: 200 mg Donepezil HCl (Donepezil Hcl 10 Mg Tablet) 10 mg PO BEDTIME [facility] Last Admin: 11/20/22 20:02 Dose: 10 mg Lorazepam (Lorazepam 1 Mg Tablet) 1 mg PO BEDTIME [facility] Last Admin: 11/20/22 20:02 Dose: 1 mg Magnesium Hydroxide (Milk Of Magnesia 30 Ml Oral.Susp) 30 ml PO DAILY PRN PRN Reason: Constipation Memantine (Memantine Hcl 10 Mg Tablet) 10 mg PO BID [facility] Last Admin: 11/21/22 08:14 Dose: 10 mg Nicotine (Nicotine 21 Mg Patch.Td24) 21 mg TRANSDERMA DAILY [facility] Last Admin: 11/21/22 08:13 Dose: 21 mg Nicotine Polacrilex (Nicotine Polacrilex 2 Mg Gum) 2 mg BUCCAL Q2H PRN PRN Reason: smoking Last Admin: 11/20/22 18:36 Dose: 2 mg Olanzapine (Olanzapine Odt 10 Mg Tab.Rapdis) 10 mg TRANSLINGU DAILY@1700 [facility] Last Admin: 11/20/22 16:32 Dose: 10 mg Risperidone (Risperidone 0.5 Mg Tablet) 0.5 mg PO BID PRN PRN Reason: Psychosis Last Admin: 11/21/22 08:14 Dose: 0.5 mg Trazodone HCl (Trazodone Hcl 50 Mg Tablet) 50 mg PO BEDTIME PRN PRN Reason: Insomnia Last Admin: 11/18/22 20:28 Dose: 50 mg Trazodone HCl (Trazodone Hcl 50 Mg Tablet) 50 mg PO TID PRN PRN Reason: Anxiety Last Admin: 11/20/22 18:19 Dose: 50 mg Trazodone HCl (Trazodone Hcl 100 Mg Tablet) 100 mg PO BEDTIME [facility] Last Admin: 11/20/22 20:02 Dose: 100 mg Vitamin D (Cholecalciferol (Vitamin D3) 25 Mcg Tablet) 25 mcg PO DAILY [facility] Last Admin: 11/21/22 08:14 Dose: 25 mcg Allergies Allergies Allergy/AdvReac Type Severity Reaction Status Date / Time No Known Allergies Allergy Verified 11/05/22 13:53 Assessment & Plan Assessment & Plan (1) Major neurocognitive disorder: Status: Acute Code(s): F03.90 - Unspecified dementia, unspecified severity, without behavioral disturbance, psychotic disturbance, mood disturbance, and anxiety Plan Pt is a 67-year-old male with no known significant PMH who is admitted to [facility], [place] for unusual and aggressive behavior. Patient apparently has been having memory loss for the past 2 years though it has increased lately. reports neighbors have file in respite order S patient has been leaving uncooked food on their porch is and threatening to hit them. also reports patient experiencing auditory and visual hallucinations and has witnessed him having full conversations with the bahena. Medical consult for admission H&P. Mood disorder Plan as per Psychiatry Dementia Continue donepezil Plan 1. Gather collateral information. 2. Increase Zyprexa to 5 mg p.o. q.h.s. to target psychosis. On November 10 we change Zyprexa 10 mg p.o. at 17:00 3. We are continue with Aricept 10 mg p.o. q.h.s., we are considering adding Namenda but we need more collateral information. 4. Family meeting for 11/07 with his . 5. MRI head R/o Lewy body or frontotemporaral. So far we couldn't get an MRI yet but later way guarded and there was frontal and periorbital damage most likely due to multifactorial dementia. 6. Ativan 2 mg po at bedtime, it was lowered to 1 mg p.o. q.h.s. walked over 50 7. Ativan 2 mg half an hour before MRI done on November 12. 8. Vistaril discontinue and started on trazodone 50 p.o. t.i.d. p.r.n. anxiety on November 13. 9. Discharge her next Thursday. 10. Letter for the court issue today Reason for continued inpatient stay Substantial Risk for: inability to function, rapid decompensation and med/psych decompensation Time Spent With Patient Time: Total time managing care of this patient today __20__ minutes.
[2022-11-21] MEDS: OLANZapine ODT 10 MG TAB.RAPDIS TRANSLINGU ×3 (12:00→19:11)
[2022-11-21 18:00] VITALS: BP 130/65; PULSE 77; RESP 16; TEMP 37.1; O2SAT 97
[2022-11-21] MEDS: traZODone HCL 50 MG TABLET PO (19:11)
[2022-11-21] MEDS: LORazepam 1 MG TABLET PO ×2 (19:11→21:10)
[2022-11-21] MEDS: Donepezil HCl 10 MG TABLET PO (21:10)
[2022-11-21] MEDS: traZODone HCL 100 MG TABLET PO (21:11)
[2022-11-22 08:00] VITALS: BP 115/66; PULSE 74; RESP 18; TEMP 36.6; O2SAT 99
[2022-11-22] MEDS: Nicotine 21 MG PATCH.TD24 TRANSDERMA (08:24)
[2022-11-22] MEDS: Cholecalciferol (Vitamin D3) 25 MCG TABLET PO (08:24)
[2022-11-22] MEDS: Celecoxib 200 MG CAPSULE PO (08:27)
[2022-11-22] MEDS: Memantine HCl 10 MG TABLET PO ×2 (08:27→20:19)
--- NOTE | 2022-11-22 16:12 | P.PNPSI_ITS ---
Subjective Subjective Date of Service: 11/22/22 Reason For Visit: Psychosis Subjective Notes: Conditional Voluntary Interim History: met with patient. Discussed with Nursing. Overall reports things are going well here. Is clearly tangential with cognitive impairment consistent with dementia. Was talking about his home, a dog, getting his check, opening a local store and buying stock for that in [place] for people to buy locally. This did not appear to be grounded in reality Medication Compliance: Yes Side effects from medications: No Attending Groups: Yes Review of Systems Acute medical concerns: No Review of Systems Review of Systems unremarkable Mental Status Exam Mental Status Exam Narrative: pleasant. Engaged. Fairly presented. Tangential. Very poor focus and concentration. Euthymic. No SI. No HI. Talking about opening a local store which did not appear to be grounded in reality. Diagnostics Vital Signs (24Hr): Vital Signs - 24 hr 11/21/22 18:00 11/22/22 08:00 Temperature 98.7 F 97.9 F Pulse Rate 77 74 Respiratory Rate 16 18 Blood Pressure 130/65 115/66 Pulse Oximetry 97 99 Oxygen Delivery Method Room Air Room Air BMI result Body Mass Index 23.4 Labs 11/06/22 07:53 Imaging Radiology Impressions: ITS Impressions Hand/Wrist X-Ray 11/08/22 16:25 IMPRESSION: Old trauma to the middle phalanx of the left third finger and multiple adjacent soft tissue foreign bodies. Mild arthritis first LONG TERM joint. Osteopenia. Orbit X-Ray 11/11/22 12:06 IMPRESSION: No radiopaque metallic foreign body seen in the orbits. Brain MRI 11/12/22 13:50 IMPRESSION: There is global cerebral volume loss with a frontoparietal lobar predominance at the high convexity. There is mild chronic microangiopathy. Medications Medications Current Medications Acetaminophen (Acetaminophen 325 Mg Tablet) 650 mg PO Q6H PRN PRN Reason: Headache/Pain Mild Scale (1-3) Last Admin: 11/20/22 20:02 Dose: 650 mg Al Hydroxide/Mg Hydroxide (Magnesium Hydrox/Alum Hydrox 30 Ml Oral.Susp) 30 ml PO Q6H PRN PRN Reason: Heartburn/Nausea Celecoxib (Celecoxib 200 Mg Capsule) 200 mg PO DAILY [facility] Last Admin: 11/22/22 08:27 Dose: 200 mg Donepezil HCl (Donepezil Hcl 10 Mg Tablet) 10 mg PO BEDTIME [facility] Last Admin: 11/21/22 21:10 Dose: 10 mg Lorazepam (Lorazepam 1 Mg Tablet) 1 mg PO BEDTIME [facility] Last Admin: 11/21/22 21:10 Dose: 1 mg Magnesium Hydroxide (Milk Of Magnesia 30 Ml Oral.Susp) 30 ml PO DAILY PRN PRN Reason: Constipation Memantine (Memantine Hcl 10 Mg Tablet) 10 mg PO BID [facility] Last Admin: 11/22/22 08:27 Dose: 10 mg Nicotine (Nicotine 21 Mg Patch.Td24) 21 mg TRANSDERMA DAILY [facility] Last Admin: 11/22/22 08:24 Dose: 21 mg Nicotine Polacrilex (Nicotine Polacrilex 2 Mg Gum) 2 mg BUCCAL Q2H PRN PRN Reason: smoking Last Admin: 11/20/22 18:36 Dose: 2 mg Olanzapine (Olanzapine Odt 10 Mg Tab.Rapdis) 10 mg TRANSLINGU DAILY@1700 [facility] Last Admin: 11/21/22 17:47 Dose: 10 mg Olanzapine (Olanzapine Odt 10 Mg Tab.Rapdis) 10 mg TRANSLINGU BID PRN PRN Reason: Psychosis Last Admin: 11/21/22 19:11 Dose: 10 mg Trazodone HCl (Trazodone Hcl 50 Mg Tablet) 50 mg PO BEDTIME PRN PRN Reason: Insomnia Last Admin: 11/18/22 20:28 Dose: 50 mg Trazodone HCl (Trazodone Hcl 50 Mg Tablet) 50 mg PO TID PRN PRN Reason: Anxiety Last Admin: 11/21/22 19:11 Dose: 50 mg Trazodone HCl (Trazodone Hcl 100 Mg Tablet) 100 mg PO BEDTIME [facility] Last Admin: 11/21/22 21:11 Dose: 100 mg Vitamin D (Cholecalciferol (Vitamin D3) 25 Mcg Tablet) 25 mcg PO DAILY [facility] Last Admin: 11/22/22 08:24 Dose: 25 mcg Allergies Allergies Allergy/AdvReac Type Severity Reaction Status Date / Time No Known Allergies Allergy Verified 11/05/22 13:53 Assessment & Plan Assessment & Plan (1) Major neurocognitive disorder: Status: Acute Code(s): F03.90 - Unspecified dementia, unspecified severity, without behavioral disturbance, psychotic disturbance, mood disturbance, and anxiety Plan Pt is a 67-year-old male with no known significant PMH who is admitted to [facility] for unusual and aggressive behavior. Patient apparently has been having memory loss for the past 2 years though it has increased lately. reports neighbors have file in respite order S patient has been leaving uncooked food on their porch is and threatening to hit them. also reports patient experiencing auditory and visual hallucinations and has witnessed him having full conversations with the bahena. Medical consult for admission H&P. Mood disorder Plan as per Psychiatry Dementia Continue donepezil Plan 1. Gather collateral information. 2. Increase Zyprexa to 5 mg p.o. q.h.s. to target psychosis. On November 10 we change Zyprexa 10 mg p.o. at 17:00 3. We are continue with Aricept 10 mg p.o. q.h.s., we are considering adding Namenda but we need more collateral information. 4. Family meeting for 11/07 with his . 5. MRI head R/o Lewy body or frontotemporaral. So far we couldn't get an MRI yet but later way guarded and there was frontal and periorbital damage most likely due to multifactorial dementia. 6. Ativan 2 mg po at bedtime, it was lowered to 1 mg p.o. q.h.s. walked over 50 7. Ativan 2 mg half an hour before MRI done on November 12. 8. Vistaril discontinue and started on trazodone 50 p.o. t.i.d. p.r.n. anxiety on November 13. 9. Discharge her next Thursday. 10. Letter for the court issue today 11/22/2022: No changes Reason for continued inpatient stay Substantial Risk for: inability to function Time Spent With Patient Time: Total time managing care of this patient today ____ minutes.
[2022-11-22] MEDS: OLANZapine ODT 10 MG TAB.RAPDIS TRANSLINGU (16:57)
[2022-11-22 18:00] VITALS: BP 131/70; PULSE 74; RESP 16; TEMP 36.5; O2SAT 96
--- NOTE | 2022-11-22 19:10 | PC.NURSE ---
pt tried to elope off unit today and was able to get into tang port, staff was able to redirect patient back on the unit.
[2022-11-22] MEDS: traZODone HCL 100 MG TABLET PO (20:18)
[2022-11-22] MEDS: LORazepam 1 MG TABLET PO (20:18)
[2022-11-22] MEDS: Donepezil HCl 10 MG TABLET PO (20:18)
[2022-11-23 08:00] VITALS: BP 112/64; PULSE 72; RESP 18; TEMP 36.9; O2SAT 97
[2022-11-23] MEDS: Memantine HCl 10 MG TABLET PO ×2 (08:55→20:36)
[2022-11-23] MEDS: Cholecalciferol (Vitamin D3) 25 MCG TABLET PO (08:55)
[2022-11-23] MEDS: Celecoxib 200 MG CAPSULE PO (08:55)
[2022-11-23] MEDS: Nicotine 21 MG PATCH.TD24 TRANSDERMA (08:57)
--- NOTE | 2022-11-23 14:20 | HO.PSYCHPN ---
Subjective Subjective Date of Service: 11/23/22 Reason For Visit: Psychosis Interim History: Overall reports things are going well here. Is clearly tangential with cognitive impairment consistent with dementia. Eager for discharge. Denies depression, SI, HI, agitation etc.. Medication Compliance: Yes Side effects from medications: No Attending Groups: Intermittent Review of Systems Acute medical concerns: No Review of Systems Review of Systems unremarkable Mental Status Exam Mental Status Exam Narrative: pleasant. Engaged. Fairly presented. Tangential. Very poor focus and concentration. Euthymic. No SI. No HI. Still talks about opening a local store which did not appear to be grounded in reality. Insight limited Diagnostics Vital Signs (24Hr): Vital Signs - 24 hr 11/22/22 18:00 11/23/22 08:00 Temperature 97.7 F 98.4 F Pulse Rate 74 72 Respiratory Rate 16 18 Blood Pressure 131/70 112/64 Pulse Oximetry 96 97 Oxygen Delivery Method Room Air Room Air BMI result Body Mass Index 23.4 Labs 11/06/22 07:53 Imaging Radiology Impressions: ITS Impressions Hand/Wrist X-Ray 11/08/22 16:25 IMPRESSION: Old trauma to the middle phalanx of the left third finger and multiple adjacent soft tissue foreign bodies. Mild arthritis first LONG TERM joint. Osteopenia. Orbit X-Ray 11/11/22 12:06 IMPRESSION: No radiopaque metallic foreign body seen in the orbits. Brain MRI 11/12/22 13:50 IMPRESSION: There is global cerebral volume loss with a frontoparietal lobar predominance at the high convexity. There is mild chronic microangiopathy. Medications Medications Current Medications Acetaminophen (Acetaminophen 325 Mg Tablet) 650 mg PO Q6H PRN PRN Reason: Headache/Pain Mild Scale (1-3) Last Admin: 11/20/22 20:02 Dose: 650 mg Al Hydroxide/Mg Hydroxide (Magnesium Hydrox/Alum Hydrox 30 Ml Oral.Susp) 30 ml PO Q6H PRN PRN Reason: Heartburn/Nausea Celecoxib (Celecoxib 200 Mg Capsule) 200 mg PO DAILY [facility] Last Admin: 11/23/22 08:55 Dose: 200 mg Donepezil HCl (Donepezil Hcl 10 Mg Tablet) 10 mg PO BEDTIME [facility] Last Admin: 11/22/22 20:18 Dose: 10 mg Magnesium Hydroxide (Milk Of Magnesia 30 Ml Oral.Susp) 30 ml PO DAILY PRN PRN Reason: Constipation Memantine (Memantine Hcl 10 Mg Tablet) 10 mg PO BID [facility] Last Admin: 11/23/22 08:55 Dose: 10 mg Nicotine (Nicotine 21 Mg Patch.Td24) 21 mg TRANSDERMA DAILY [facility] Last Admin: 11/23/22 08:57 Dose: 21 mg Nicotine Polacrilex (Nicotine Polacrilex 2 Mg Gum) 2 mg BUCCAL Q2H PRN PRN Reason: smoking Last Admin: 11/20/22 18:36 Dose: 2 mg Olanzapine (Olanzapine Odt 10 Mg Tab.Rapdis) 10 mg TRANSLINGU DAILY@1700 [facility] Last Admin: 11/22/22 16:57 Dose: 10 mg Olanzapine (Olanzapine Odt 10 Mg Tab.Rapdis) 10 mg TRANSLINGU BID PRN PRN Reason: Psychosis Last Admin: 11/21/22 19:11 Dose: 10 mg Trazodone HCl (Trazodone Hcl 50 Mg Tablet) 50 mg PO BEDTIME PRN PRN Reason: Insomnia Last Admin: 11/18/22 20:28 Dose: 50 mg Trazodone HCl (Trazodone Hcl 50 Mg Tablet) 50 mg PO TID PRN PRN Reason: Anxiety Last Admin: 11/21/22 19:11 Dose: 50 mg Trazodone HCl (Trazodone Hcl 100 Mg Tablet) 100 mg PO BEDTIME [facility] Last Admin: 11/22/22 20:18 Dose: 100 mg Vitamin D (Cholecalciferol (Vitamin D3) 25 Mcg Tablet) 25 mcg PO DAILY [facility] Last Admin: 11/23/22 08:55 Dose: 25 mcg Allergies Allergies Allergy/AdvReac Type Severity Reaction Status Date / Time No Known Allergies Allergy Verified 11/05/22 13:53 Assessment & Plan Assessment & Plan (1) Major neurocognitive disorder: Status: Acute Code(s): F03.90 - Unspecified dementia, unspecified severity, without behavioral disturbance, psychotic disturbance, mood disturbance, and anxiety Plan Pt is a 67-year-old male with no known significant PMH who is admitted to [facility] for unusual and aggressive behavior. Patient apparently has been having memory loss for the past 2 years though it has increased lately. reports neighbors have file in respite order S patient has been leaving uncooked food on their porch is and threatening to hit them. also reports patient experiencing auditory and visual hallucinations and has witnessed him having full conversations with the bahena. Medical consult for admission H&P. Mood disorder Plan as per Psychiatry Dementia Continue donepezil Plan 1. Gather collateral information. 2. Increase Zyprexa to 5 mg p.o. q.h.s. to target psychosis. On November 10 we change Zyprexa 10 mg p.o. at 17:00 3. We are continue with Aricept 10 mg p.o. q.h.s., we are considering adding Namenda but we need more collateral information. 4. Family meeting for 11/07 with his . 5. MRI head R/o Lewy body or frontotemporaral. So far we couldn't get an MRI yet but later way guarded and there was frontal and periorbital damage most likely due to multifactorial dementia. 6. Ativan 2 mg po at bedtime, it was lowered to 1 mg p.o. q.h.s. walked over 50 7. Ativan 2 mg half an hour before MRI done on November 12. 8. Vistaril discontinue and started on trazodone 50 p.o. t.i.d. p.r.n. anxiety on November 13. 9. Discharge her next Thursday. 10. Letter for the court issue today 11/23/2022: No changes Reason for continued inpatient stay Substantial Risk for: rapid decompensation Time Spent With Patient Time: Total time managing care of this patient today ____ minutes.
[2022-11-23] MEDS: OLANZapine ODT 10 MG TAB.RAPDIS TRANSLINGU (16:21)
[2022-11-23 18:00] VITALS: BP 118/64; PULSE 69; RESP 18; TEMP 36.7; O2SAT 96
[2022-11-23] MEDS: Donepezil HCl 10 MG TABLET PO (20:36)
[2022-11-23] MEDS: traZODone HCL 100 MG TABLET PO (20:36)
[2022-11-24] MEDS: Nicotine Polacrilex 2 MG GUM BUCCAL (02:00)
[2022-11-24] MEDS: traZODone HCL 50 MG TABLET PO (02:01)
[2022-11-24] MEDS: Acetaminophen 325 MG TABLET 650 MG PO (04:01)
--- NOTE | 2022-11-24 08:07 | PM.PSYDC ---
DS: Providers Provider Date of Service: 11/24/22 Date of admission: 11/05/22 13:33 Date of discharge: 11/24/22 Primary care physician: Unknown Physician Consults: 11/05/22 13:53 Consult to Hospitalist Routine Comment: Consulting Provider: Hospitalist Reason For Exam: Direct admission Attending physician on discharge: Jonn Kelly DS: Diagnosis Discharge Diagnosis (1) Major neurocognitive disorder: Status: Acute DS: Medications Discharge Medications Home Medications: Home Medications Medication Instructions Recorded Confirmed celecoxib 200 mg capsule (Celebrex) 200 mg PO DAILY 11/05/22 11/05/22 cholecalciferol (vitamin D3) 50 2,000 unit PO DAILY 11/05/22 11/05/22 mcg (2,000 unit) capsule (Vitamin D3) donepezil 10 mg tablet 10 mg PO BEDTIME 11/05/22 11/05/22 donepezil 5 mg tablet 5 mg PO BEDTIME 11/05/22 11/05/22 Mental Status Exam Mental Status Exam Patient Appearance: Well Grooomed and Appropriate Patient Orientation: Person and Situation Level of Consciousness: Awake and Appropriate Patient Behavior: Guarded and Passive Mood Description: Withdrawn Affect Description: Constricted Patient Cognition Impaired: Yes Ability to Follow Directions: Fair Speech Pattern: Clear Hallucinations: None Delusions: Not Present Thought Process: Illogical, Distracted and Evasive Thought Content: positive for [place], positive for Perseveration and positive for Poverty of Content Judgement: Poor Data Imaging Diagnostic Imaging Impressions Hand/Wrist X-Ray 11/08/22 16:25 IMPRESSION: Old trauma to the middle phalanx of the left third finger and multiple adjacent soft tissue foreign bodies. Mild arthritis first ASSISTED joint. Osteopenia. Orbit X-Ray 11/11/22 12:06 IMPRESSION: No radiopaque metallic foreign body seen in the orbits. Brain MRI 11/12/22 13:50 IMPRESSION: There is global cerebral volume loss with a frontoparietal lobar predominance at the high convexity. There is mild chronic microangiopathy. DS: Summary Hospital Course Hospital Course: The patient is a 67-year-old male, , with good social support, referred from the emergency room another hospital since he was delusional, confused with poor short-term memory and sporadic agitation. Please see the HPI of the admission note for further details. The patient does not have prior psychiatric history he has never been treated before. On admission, the patient was confused, pleasant and cooperative. He was a very poor historian and he could not understand why he was brought to the hospital. We gather collateral information and his and family reported a history of progressive cognitive impairment for the last months. He had been having erratic behavior such as going into the neighbor's house and leaving food. The neighbors have complain to the police and he even has legal problems. We tried to do a [place] but the patient could not do it and his Lj test was quite low. We did a medical workout and MRI was ordered and it showed frontal and parental impairment. Most likely due to mixed dementia. We discussed risks, benefits, side-effects and alternatives and we started on Aricept titrated up to 10 mg p.o. q.h.s. and Namenda titrated up to 10 mg p.o. b.i.d.. Also due to his psychotic symptoms we started on Zyprexa titrated up to 10 mg p.o. q.h.s. with for improvement. While he was in the unit, he was confused at times, he tried to elope the unit a couple of times but he was easily redirectable. The patient was able to participate in groups, redirected several times but it was obvious that his cognitive impairment was severe. We discussed discharge planning with the family and they want to take him back home. The social science research assistant did several referrals for outpatient services and other ancillary services in the community. Since there were no safety concerns discharge planning was discussed. Time spent discussing smoking cessation with patient: 3 to 10 minutes Status at Discharge Cognitive/behavioral status at discharge: Impaired at baseline Functional status at discharge: independent ambulation Overall status at discharge: patient is back to baseline Time Spent with Patient Time attestation: Total time managing care of this patient today ____ minutes. Time spent: Less than 30 minutes Discharge Plan Discharge Anticipated Discharge Date/Time: 11/24/22 15:00 Patient Disposition: Home, Self-Care Discharge Diagnosis: Multifactorial dementia Psychosis NOS Referrals: [facility] [Other] - 12/18/22 3:00 pm (Your first appointment with Foster Babb APRN for psychiatry is scheduled for 12/18/22 at 3PM. This appointment is telehealth they will send you a link for the appointment. ) [facility] [Other] - 12/01/22 (Referral for [facility] was placed. production control specialist Kim Gold will schedule tour of program for Thursday11/25/22 and RN to assess on 12/01/22 for enrollment. RN to contact you directly to schedule time for assessment home visit. Please call Kim at [phone] with any questions. ) [facility] [Other] - 1 Week Discharge Medications: New acetaminophen 325 mg Tablet 650 mg PO Q6H PRN (Reason: Headache/Pain Mild Scale (1-3)) Qty: 60 0RF trazodone 50 mg Tablet 50 mg PO TID PRN (Reason: Anxiety) 30 Days Qty: 60 0RF trazodone 100 mg Tablet 100 mg PO BEDTIME 30 Days Qty: 30 0RF memantine [Namenda] 10 mg Tablet 10 mg PO BID 30 Days Qty: 60 0RF Continued celecoxib 200 mg Capsule 200 mg PO DAILY 30 Days Qty: 30 0RF Rx Instructions: daily with food donepezil 10 mg Tablet 10 mg PO BEDTIME 30 Days Qty: 30 0RF cholecalciferol (vitamin D3) [Vitamin D3] 50 mcg (2,000 unit) Capsule 2,000 unit PO DAILY Qty: 30 0RF Discontinued donepezil 5 mg Tablet 5 mg PO BEDTIME Patient Comments: last filled 09/14/22 for 90 day supply Discharge Orders: Discharge Order (Routine); Ordered 11/24/22 Ordered By: Jonn Kelly Diet: Advance to usual diet Activity on Discharge: As tolerated Stand Alone Forms: Patient Portal Discharge page Care Plan Goals: Care plan goals achieved in this admission Health Concerns: Continue treatment with primary care physician Plan of Treatment: Continue treatment with outpatient providers, medication management. Assessment: The patient is an elderly male with no prior psychiatric history who was brought into the facility from the emergency room of another hospital for disorganized behavior and and neuro cognitive progressive disorder. The patient even has legal charges pressed by his neighbors due to his erratic behavior. We wrote several letters to the court explaining that the patient has a medical problem that explains he has disruptive behavior. The patient was treated with olanzapine 10 mg p.o. q.h.s. that resolved his psychosis and he was started on Aricept and Namenda to target dementia. At this moment, the patient is safe to be discharged in the community, his family wants him back at home.
[2022-11-24 11:00] VITALS: BP 116/65; PULSE 77; RESP 16; TEMP 36.7; O2SAT 98
[2022-11-24] MEDS: Nicotine 21 MG PATCH.TD24 TRANSDERMA (11:01)
[2022-11-24] MEDS: Memantine HCl 10 MG TABLET PO (11:02)
[2022-11-24] MEDS: Celecoxib 200 MG CAPSULE PO (11:02)
[2022-11-24] MEDS: Cholecalciferol (Vitamin D3) 25 MCG TABLET PO (11:02)
[2022-11-24] MEDS: OLANZapine ODT 10 MG TAB.RAPDIS TRANSLINGU (17:12)
== END 2022-11-24 17:50 | disposition home or self-care (01) | DRG 884 ==
PROVIDERS: Admitting Provider Psychiatry & Neurology Psychiatry; Visit Provider Psychiatry & Neurology Psychiatry
DX: F03.92 Unspecified dementia, unspecified severity, with psychotic disturbance (principal); F17.210 Nicotine dependence, cigarettes, uncomplicated; Z71.6 Tobacco abuse counseling; Z23 Encounter for immunization; Z79.899 Other long term (current) drug therapy
CPT/HCPCS: 36415; 70551; 73110; 73130; 80053; 80061; 90686

== ENCOUNTER → 2022-11-05 13:33 | Outpatient (BNV) | payer OTHER, SELFPAY | PROVIDERS: Admitting Provider Psychiatry & Neurology Psychiatry; Visit Provider Psychiatry & Neurology Psychiatry | DX: F03.90 Unspecified dementia, unspecified severity, without behavioral disturbance, psychotic disturbance, mood disturbance, and anxiety (principal) | CPT/HCPCS: 90792; 99231; 99232; 99238 ==

== ENCOUNTER → 2022-11-05 13:33 | Outpatient (BNV) | payer OTHER, SELFPAY | PROVIDERS: Admitting Provider Psychiatry & Neurology Psychiatry; Visit Provider Student in an Organized Health Care Education/Training Program | DX: Z02.2 Encounter for examination for admission to residential institution (principal) | CPT/HCPCS: 99429 ==